=== PATIENT | female | born 1985 | race Caucasian/White ===

== ENCOUNTER 2019-07-18 07:57 | Outpatient (CLI) | payer BC, SELFPAY ==
--- NOTE | 2019-07-18 08:19 | CT_ITS ---
WS: [id number] CT ABDOMEN PELVIS TECHNIQUE: Noncontrast CT of the abdomen and pelvis with coronal and sagittal reformatted images. CLINICAL INFORMATION: lymphadenopathy COMPARISON: April 22, 2019 DLP: 1133.[address] scans at [facility] use at least one of these dose optimization techniques: automat ed exposure control; mA and/or kV adjustment per patient size (includes targeted exams where dose is matched to clinical indication); or iterative reconstruction. FINDINGS: Noncontrast liver is normal. Cholecystectomy clips. Noncontrast spleen is normal. Normal GE junction. Adrenal glands are normal. Again seen is mild haziness along the mesenteric root and central mesent [place] with a few prominent lymph nodes consistent with hema mesentery unchanged. Recommend continued annual surveillance. Previously described right UVJ calculus has resolved. No hydronephrosis today. Adrenal glands are normal. No hydronephrosis. No obstructing renal or ureteral calculi. No evidence o f small or large bowel obstruction. Normal caliber abdominal aorta. IMPRESSION: 1. Previously described right UVJ calculus has resolved. 2. 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 Recommend continued annual surveillance. 3. Prior cholecystectomy. 4. No new lymphadenopathy.
[2019-07-18] MEDS: iohexol 300 mg/mL 50 mL Btl PO (09:55)
== END 2019-07-18 07:58 | disposition home or self-care (01) ==
LOC: RADWPI 08:03
PROVIDERS: Family Provider Nurse Practitioner; PCP Nurse Practitioner; Visit Provider Nurse Practitioner
DX: R59.1 Generalized enlarged lymph nodes (principal); Z90.49 Acquired absence of other specified parts of digestive tract
CPT/HCPCS: 74176; Q9967

== ENCOUNTER → 2019-09-03 15:48 | Outpatient (BNVA) | payer BC, SELFPAY | PROVIDERS: Family Provider Nurse Practitioner; PCP Nurse Practitioner; Visit Provider Obstetrics & Gynecology | DX: N97.9 Female infertility, unspecified (principal) | CPT/HCPCS: 84144; 84443; 85520 ==

== ENCOUNTER → 2019-09-11 10:05 | Outpatient (BNVA) | payer BC, SELFPAY | PROVIDERS: Family Provider Nurse Practitioner; PCP Nurse Practitioner; Visit Provider Obstetrics & Gynecology | DX: Z12.4 Encounter for screening for malignant neoplasm of cervix (principal) | CPT/HCPCS: 84144; 85520; 88175 ==

== ENCOUNTER → 2019-11-28 14:58 | Outpatient (BNVA) | payer BC, SELFPAY | PROVIDERS: Family Provider Nurse Practitioner; PCP Nurse Practitioner; Visit Provider Nurse Practitioner | DX: M54.2 Cervicalgia (principal); M54.5 Low back pain | CPT/HCPCS: 72040; 72072; 72100 ==

== ENCOUNTER 2019-12-05 06:00 | Outpatient (RCR) | payer BC, SELFPAY | END 2019-12-14 23:59 | disposition home or self-care (01) | LOC: TPT 06:00 | PROVIDERS: PCP Nurse Practitioner; Referring Provider Nurse Practitioner; Visit Provider Nurse Practitioner | DX: M51.36 Other intervertebral disc degeneration, lumbar region (principal) | CPT/HCPCS: 97110; 97161 ==

== ENCOUNTER → 2020-01-31 10:38 | Outpatient (BNVA) | payer BC, SELFPAY | PROVIDERS: PCP Nurse Practitioner; Visit Provider Nurse Practitioner Family | DX: J06.9 Acute upper respiratory infection, unspecified (principal); Z11.59 Encounter for screening for other viral diseases | CPT/HCPCS: 87635 ==

== ENCOUNTER → 2020-02-04 11:09 | Outpatient (BNVA) | payer BC, SELFPAY | PROVIDERS: PCP Nurse Practitioner; Visit Provider Obstetrics & Gynecology | DX: N97.9 Female infertility, unspecified (principal) | CPT/HCPCS: 83001; 84450 ==

== ENCOUNTER → 2020-02-06 12:01 | Outpatient (BNVA) | payer BC, SELFPAY | PROVIDERS: PCP Nurse Practitioner; Visit Provider Nurse Practitioner Family | DX: R07.9 Chest pain, unspecified (principal); E11.9 Type 2 diabetes mellitus without complications | CPT/HCPCS: 80053; 80061; 83036; 84443; 84484; 85025 ==

== ENCOUNTER → 2020-02-12 14:36 | Outpatient (BNVA) | payer BC, SELFPAY | PROVIDERS: PCP Nurse Practitioner; Visit Provider Obstetrics & Gynecology | DX: N83.01 Follicular cyst of right ovary (principal) | CPT/HCPCS: 76830 ==

== ENCOUNTER → 2020-02-14 11:35 | Outpatient (BNVA) | payer BC, SELFPAY | PROVIDERS: PCP Nurse Practitioner; Visit Provider Obstetrics & Gynecology | DX: N83.01 Follicular cyst of right ovary (principal) | CPT/HCPCS: 76830 ==

== ENCOUNTER → 2020-02-29 14:23 | Outpatient (BNVA) | payer BC, SELFPAY | PROVIDERS: PCP Nurse Practitioner; Visit Provider Obstetrics & Gynecology | DX: Z32.01 Encounter for pregnancy test, result positive (principal) | CPT/HCPCS: 81025 ==

== ENCOUNTER → 2020-03-12 13:53 | Outpatient (BNVA) | payer BC, SELFPAY | PROVIDERS: PCP Nurse Practitioner; Visit Provider Obstetrics & Gynecology | DX: Z31.83 Encounter for assisted reproductive fertility procedure cycle (principal) | CPT/HCPCS: 76830; 76856 ==

== ENCOUNTER → 2020-03-14 11:30 | Outpatient (BNVA) | payer BC, SELFPAY | PROVIDERS: PCP Nurse Practitioner; Visit Provider Obstetrics & Gynecology | DX: N83.01 Follicular cyst of right ovary (principal) | CPT/HCPCS: 76830 ==

== ENCOUNTER 2020-03-28 01:41 | Emergency (ER) | payer BC, SELFPAY ==
[2020-03-28] VITALS (7 sets, daily range): BP systolic 105–173; BP diastolic 56–107; PULSE 69–91; RESP 13–21; TEMP 36.6; O2SAT 97–100; BMI 51.5
--- NOTE | 2020-03-28 01:45 | XR_ITS ---
WS: [id number] Portable AP upright chest, 03/28/2020 Clinical Data: Chest pain Comparison: PA and lateral chest, 03/07/2019. Findings: No nodules, masses or effusions are seen. The heart is normal. The pulmonary vascularity is not increased. No pneumonia or pneumothorax is seen. XR/XR chest 1V portable [id number] Impression: Negative chest.
--- NOTE | 2020-03-28 01:46 | ECG_ITS ---
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 Measurements Intervals [place] Rate: 82 P: 30 NV: 144 QRS: 28 QRSD: 101 T: 35 QT: 380 QTc: 444 Interpretive Statements SINUS RHYTHM LOW QRS VOLTAGE IN PRECORDIAL LEADS [QRS DEFLECTION < 1.0 mV IN CHEST LEADS] Compared to ECG 05/30/2015 19:56:59 Low QRS voltage now present Electronically Signed On 03-28-2020 19:59:06 MEDICAL APPOINTMENT SCHEDULER by Emanuel Arguello M.D. [email or web address]
--- NOTE | 2020-03-28 01:55 | ED_ITS ---
Documented by User: Chandni Ley 03/28/20 06:02 HPI - Chest Pain General: Chief Complaint: Chest Pain Stated Complaint: cp Time Seen by Provider: 03/28/20 01:44 Source: patient Mode of arrival: ambulatory Limitations: no limitations History of Present Illness: HPI narrative: Parris is a 34-year-old female who comes in complaining of chest pain. She describes the pain as intermittent and is a squeezing pain deep in her chest that radiates through to her back. She states the pain has been going on since 14 January. She seen her primary care physician about this but she felt this was anxiety. The patient elizabeth has chest pressure along with a sporadic squeezing type pains. She denies any radiation of this pressure and does not describe any nausea or vomiting, diaphoresis, worsening with exertion or other complaints. Patient states she is also had pancreatitis in the past and this feels somewhat like that. She states the pain feels somewhat like a burning pain as well. The patient states that she has been commonly getting indigestion after she eats which is getting progressively worse. Tonight the patient had severe indigestion after eating but then still went to walk and the exertion made her chest pain no worse. She has been walking most evenings for exercise and does not get the chest pain at that time. Tonight the patient states the symptoms have been constant for 7 hours. They are not waxing and waning or changed by anything but just constant. Patient denies any other complaints or concerns. Associated symptoms: Deny abdominal pain, diaphoresis, dyspnea, fever(s), nausea, palpitations, syncope or vomiting Review of Systems Const: Denies: fever(s), chills, body aches, fatigue, malaise or diaphoresis Eyes: Denies: change in vision, blurry vision, photophobia, eye discomfort, eye discharge, eye redness or yellow eyes ENMT: Denies: throat pain, odynophagia, hoarseness, swelling of lips/tongue, ear or mastoid pain, ear discharge, change in hearing or nasal discharge Card: Reports: chest pain; Denies: palpitations, irregular heart rhythm, edema, lightheadedness, syncope, pre-syncope, dyspnea on exertion or orthopnea Resp: Denies: dyspnea, productive cough, non-productive cough, wheezing, hemoptysis or chest congestion GI: Denies: abdominal pain, nausea, vomiting, hematemesis, coffee ground emesis, heartburn, diarrhea, constipation, GI cramping, hematochezia or melena : Denies: flank pain, dysuria, urinary frequency, urinary urgency or hematuria Musc: Denies: neck pain, back pain, extremity pain, extremity swelling, joint pain, joint swelling, joint redness, joint warmth or joint stiffness Skin/Breast: Denies: rash, pruritus, erythema, skin pain or skin tenderness Neuro: Denies: headache(s), numbness in extremities, weakness in extremities, sensory changes, lack of coordination, difficulty walking, dizziness, vertigo, confusion, Slurred speech present or seizure-like activity Sherif/Lymph: Denies: easy bruising, easy bleeding, petechiae, purpura or enlarg ed lymph nodes All/Imm: Denies: urticaria, throat swelling, tongue swelling, facial swelling or acute wheezing PFSH ED PFSH: Medical History Anxiety Chronic GERD Diabetes mellitus History of smoking Stop Summer 2019 No pertinent past medical history Denies hypertension, seizures, asthma, DVT/PE, bleeding problems. PCP: PEMA Borja Obesity Surgical History S/P cholecystectomy 05/20/2014- Laparoscopic Dx: Cholelithiasis. Performed by Dr Morgan at [facility] in [place], [place] S/P wisdom tooth extraction Status post surgery History of surgery for right arm fracture done in [facility] Family History Family/Other Breast cancer Maternal aunt, diagnosed in her late 40s Hypertension maternal great grandmother Mother Diabetes Heart disease Hyperlipidemia Hypertension Father Diabetes Hypertension Grandmother Heart disease maternal Hyperlipidemia maternal Hypertension maternal Thyroid condition maternal Grandfather Stroke Maternal great grandfather Hypertension maternal Denies family history of Colon cancer Ovarian cancer Uterine cancer Social History Smoking and tobacco status: former smoker Additional social history: - Tobacco Use: Started smoking at age 16 summer Alcohol Use: has not drank in 1 year Drug Use: Used marijuana as a teenager. Last use of marijuana was prior to 2005. Denies any other drug use. 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 Female Reproductive History: Date of last menstrual period: 03/01/20 Physical Exam Const: COMMON NORMALS: no acute distress, patient oriented x3, no limitations and alert GENERAL APPEARANCE: cooperative HENMT: COMMON NORMALS: normocephalic, atraumatic, external ears normal, EAC's normal and Normal external nose present HEAD & SCALP: normal to inspection, normocephalic and atraumatic FACE & SINUS: normal facial exam and face symmetric NOSE: Normal external nose present and Normal nares present EXTERNAL EAR: Yes external ears normal EXTERNAL AUDITORY CANAL: EAC's normal MOUTH: Normal oral and palatal mucosa present, lip normal and tongue normal Eye: COMMON NORMALS: Equal, round and reactive pupils present and conjunctivae normal GENERAL EYE: appearance normal, both eyes and all related structures ALIGNMENT: Yes alignment normal PERIORBITAL: periorbital findings normal EYELID: eyelids normal CONJUNCTIVA: Yes conjunctivae normal SCLERA: sclerae normal PUPIL: Yes Equal, round and reactive pupils present Neck/C-Spine: COMMON NORMALS: full ROM, no lymphadenopathy, supple, no meningeal signs and no JVD GENERAL: Yes normal visual inspection and Yes trachea midline Chest: COMMONS NORMALS: normal inspection of the chest and normal palpation of entire chest wall Resp: COMMON NORMALS: normal respiratory effort, No retractions, No use of accessory muscles and clear to auscultation bilaterally EFFORT & INSPECTION: Yes able to speak in complete sentences and Yes symmetric chest movement AUSCULTATION: clear to auscultation bilaterally, no crackles, no rales, no rhonchi and no wheezes Cardio: COMMON NORMALS: no JVD, regular rate, regular rhythm, S1 normal heart sound present and S2 normal heart sound present RATE: regular rate RHYTHM: regular rhythm HEART SOUNDS: S1 normal heart sound present, S2 normal heart sound present, no click, no gallops, no murmurs and no rubs GI: COMMON NORMALS: Soft to palpation and No hepatosplenomegaly present PALPATION: Yes Soft to palpation, No Tenderness to palpation present (GI), No Guarding due to palpation present (GI), No Rigid due to palpation, Yes No hepatosplenomegaly present, No Hernia present, No Palpable mass present and No Pulsatile mass present : COMMON NORMALS: Yes no CVA tenderness BLADDER/KIDNEY EXAM: Yes no CVA tenderness EXTERNAL FEMALE EXAM: No Hernia present Back/Pelvis: COMMON NORMALS: no CVA tenderness, thoracic and lumbar spine normal to inspection, no thoracic nor lumbar tenderness and thoraco-lumbar ROM normal Extremity: COMMON NORMALS: normal to inspection, full ROM, capillary refill normal, no joint enlargement, no clubbing, cyanosis or edema and no calf tenderness Neuro: COMMON NORMALS: patient oriented x3, CN's II-XII intact bilaterally, moves all extremities, no focal motor deficits and no sensory deficits noted SENSORIUM/ORIENTATION: Yes alert MENINGEAL SIGNS: Yes no meningeal signs SPEECH: speech normal Psych: COMMON NORMALS: mental status grossly normal, Normal thought process present, cooperative, normal affect, speech normal and activity/motor behavior normal SPEECH: Yes normal speech THOUGHT PROCESS: Normal thought process present Skin: COMMON NORMALS: no rashes or lesions noted, turgor normal, no jaundice, no petechiae and no mottling GENERAL SKIN EXAM: no rashes or lesions noted and turgor normal Course Vital Signs: Vital signs: Vital Signs Temperature 97.8 F 03/28/20 01:44 Pulse Rate 82 03/28/20 07:13 Respiratory Rate 18 03/28/20 07:13 Blood Pressure 144/84 03/28/20 07:13 Pulse Oximetry 98 03/28/20 07:13 MDM - Chest Pain MDM Narrative: Medical decision making narrative: [id number] -Parris is a very nice 34-year-old female who comes in concerned about her chest discomfort. Per the patient's history this sounds more like a reflux type of discomfort. The symptoms are not associated with exertion, she has no diaphoresis, nausea or vomiting, radiation of her pain or shortness of breath. The patient does appear extremely anxious and admits to severe anxiety. Patient is recent been seen by her primary care provider and started on anxiety medicine but it has been less than 2 weeks since starting it. Patient has had constant chest discomfort for over 7 hours and her EKG and first troponin are normal. Her second EKG is also normal but the second troponin is pending at this time. The patient got relief with a GI cocktail here. Utilizing the hospital chest pain pathway and the heart score the patient could have been discharged after the first troponin as she has had constant pain for over 6 hours and she has a negative EKG and troponin. Her heart score is a 3. I also utilized the EDACs score and the TMACs scoring systems and both also assign her a low risk. Patient at this time states she is ready to go home and will just follow-up with Dr. Malik that is scheduled for April 09 and does not want to stay for stress test. After much discussion she does agree to stay for at least a second troponin. Lab Data: Attestation: I reviewed the patient's lab results. Labs: Lab Results 03/28/20 03/28/20 03/28/20 Range/Units 01:46 02:00 02:00 WBC 10.2 H (4.0-10.0) 10^3/ uL RBC 4.44 (4.1-5.3) 10^6/u L Hgb 13.2 (11.5-15.3) g/dL Hct 41.6 (37.0-47.0) % MCV 93.7 (81-99) fL MCH 29.7 (28.0-34.0) pg MCHC 31.7 (30.0-36.0) g/dL RDW 12.0 L (12.1-15.1) % Plt Count 346 (130-400) 10^3/c mm MPV 9.5 (7.4-10.4) fL Neut % (Auto) 55.9 % Lymph % (Auto) 33.3 % [place] % (Auto) 7.6 % Eos % (Auto) 3.0 % Baso % (Auto) 0.1 % Neut # (Auto) 5.69 (1.8-7.7) 10^3/u L Lymph # (Auto) 3.4 (0.8-4.8) 10^3/u L [place] # (Auto) 0.8 (0.2-0.9) 10^3/u L Eos # (Auto) 0.3 (0.0-0.8) 10^3/u L Baso # (Auto) 0.0 (0.0-0.1) 10^3/u L Nucleated RBC % (a uto) 0 % Nucleated RBCs # 0.0 /100WBC PT 12.50 (12.1-14.9) SECO NDS INR 0.91 (0.8-1.2) D-Dimer 0.51 (0-0.59) ug/mIFE U Sodium (136-145) mmol/L Potassium (3.5-5.1) mmol/L Chloride (98-107) mmol/L Carbon Dioxide (22-29) mmol/L Anion Gap (5-19) BUN (6-20) mg/dL Creatinine (0.5-0.9) mg/dL GFR Calculation (90-130) mL/min Glucose (65-115) mg/dL Calculated Osmolal ity (285-295) mOsm/k g Calcium (8.5-10.5) mg/dL Magnesium (1.7-2.3) mg/dL Total Bilirubin (0.15-1.2) mg/dL AST (0-32) U/L ALT (0-33) U/L Alkaline Phosphata se (35-105) IU/L Troponin T Baselin e (0-10) ng/L Troponin T 120 Min cher-ae heights (0-10) ng/L Delta Troponin T (0-10) ABS# Total Protein (6.6-8.7) g/dL Albumin (3.5-5.2) g/dL Globulin (1.3-4.6) g/dL Lipase (13-60) U/L Urine Color (Yellow) Urine Appearance (CLEAR) Urine pH (5-7) Ur Specific Gravit y (1.005-1.030) Urine Protein (Negative) Urine Glucose (UA) (Normal) Urine Ketones (Negative) Urine Blood (Negative) Urine Nitrate (Negative) Urine Bilirubin (Negative) Urine Urobilinogen (Negative) mg/dL Ur Leukocyte Maria Teresa ase (Negative) Urine RBC (0-2) /hpf Urine WBC (0-5) /hpf Ur Squamous Epith Cells (0-5) /hpf Amorphous Sediment Urine Bacteria (NONE) /hpf H. pylori IgG Anti body (Negative) 03/28/20 03/28/20 03/28/20 Range/Units 02:00 02:00 02:05 WBC (4.0-10.0) 10^3/ uL RBC (4.1-5.3) 10^6/u L Hgb (11.5-15.3) g/dL Hct (37.0-47.0) % MCV (81-99) fL MCH (28.0-34.0) pg MCHC (30.0-36.0) g/dL RDW (12.1-15.1) % Plt Count (130-400) 10^3/c mm MPV (7.4-10.4) fL Neut % (Auto) % Lymph % (Auto) % [place] % (Auto) % Eos % (Auto) % Baso % (Auto) % Neut # (Auto) (1.8-7.7) 10^3/u L Lymph # (Auto) (0.8-4.8) 10^3/u L [place] # (Auto) (0.2-0.9) 10^3/u L Eos # (Auto) (0.0-0.8) 10^3/u L Baso # (Auto) (0.0-0.1) 10^3/u L Nucleated RBC % (a uto) % Nucleated RBCs # /100WBC PT (12.1-14.9) SECO NDS INR (0.8-1.2) D-Dimer (0-0.59) ug/mIFE U Sodium 139 (136-145) mmol/L Potassium 4.0 (3.5-5.1) mmol/L Chloride 102 (98-107) mmol/L Carbon Dioxide 27 (22-29) mmol/L Anion Gap 14.0 (5-19) BUN 11 (6-20) mg/dL Creatinine 0.6 (0.5-0.9) mg/dL GFR Calculation 113.1 (90-130) mL/min Glucose 148 H (65-115) mg/dL Calculated Osmolal ity 290 (285-295) mOsm/k g Calcium 9.6 (8.5-10.5) mg/dL Magnesium 2.2 (1.7-2.3) mg/dL Total Bilirubin 0.2 (0.15-1.2) mg/dL AST 19 (0-32) U/L ALT 24 (0-33) U/L Alkaline Phosphata se 60 (35-105) IU/L Troponin T Baselin e 6 (0-10) ng/L Troponin T 120 Min cher-ae heights (0-10) ng/L Delta Troponin T (0-10) ABS# Total Protein 7.1 (6.6-8.7) g/dL Albumin 4.6 (3.5-5.2) g/dL Globulin 2.5 (1.3-4.6) g/dL Lipase 34 (13-60) U/L Urine Color Yellow (Yellow) Urine Appearance Cloudy A (CLEAR) Urine pH 6.5 (5-7) Ur Specific Gravit y 1.010 (1.005-1.030) Urine Protein Neg (Negative) Urine Glucose (UA) Norm (Normal) Urine Ketones Negative (Negative) Urine Blood Neg (Negative) Urine Nitrate Negative (Negative) Urine Bilirubin Neg (Negative) Urine Urobilinogen Norm (Negative) mg/dL Ur Leukocyte Maria Teresa ase Trace H (Negative) Urine RBC 0-4 H (0-2) /hpf Urine WBC 10-15 H (0-5) /hpf Ur Squamous Epith Cells 0-4 H (0-5) /hpf Amorphous Sediment Not Reportable Urine Bacteria 2+ H (NONE) /hpf H. pylori IgG Anti body (Negative) 03/28/20 03/28/20 Range/Units 05:00 05:00 WBC (4.0-10.0) 10^3/ uL RBC (4.1-5.3) 10^6/u L Hgb (11.5-15.3) g/dL Hct (37.0-47.0) % MCV (81-99) fL MCH (28.0-34.0) pg MCHC (30.0-36.0) g/dL RDW (12.1-15.1) % Plt Count (130-400) 10^3/c mm MPV (7.4-10.4) fL Neut % (Auto) % Lymph % (Auto) % [place] % (Auto) % Eos % (Auto) % Baso % (Auto) % Neut # (Auto) (1.8-7.7) 10^3/u L Lymph # (Auto) (0.8-4.8) 10^3/u L [place] # (Auto) (0.2-0.9) 10^3/u L Eos # (Auto) (0.0-0.8) 10^3/u L Baso # (Auto) (0.0-0.1) 10^3/u L Nucleated RBC % (a uto) % Nucleated RBCs # /100WBC PT (12.1-14.9) SECO NDS INR (0.8-1.2) D-Dimer (0-0.59) ug/mIFE U Sodium (136-145) mmol/L Potassium (3.5-5.1) mmol/L Chloride (98-107) mmol/L Carbon Dioxide (22-29) mmol/L Anion Gap (5-19) BUN (6-20) mg/dL Creatinine (0.5-0.9) mg/dL GFR Calculation (90-130) mL/min Glucose (65-115) mg/dL Calculated Osmolal ity (285-295) mOsm/k g Calcium (8.5-10.5) mg/dL Magnesium (1.7-2.3) mg/dL Total Bilirubin (0.15-1.2) mg/dL AST (0-32) U/L ALT (0-33) U/L Alkaline Phosphata se (35-105) IU/L Troponin T Baselin e (0-10) ng/L Troponin T 120 Min cher-ae heights 6.00 (0-10) ng/L Delta Troponin T 0 (0-10) ABS# Total Protein (6.6-8.7) g/dL Albumin (3.5-5.2) g/dL Globulin (1.3-4.6) g/dL Lipase (13-60) U/L Urine Color (Yellow) Urine Appearance (CLEAR) Urine pH (5-7) Ur Specific Gravit y (1.005-1.030) Urine Protein (Negative) Urine Glucose (UA) (Normal) Urine Ketones (Negative) Urine Blood (Negative) Urine Nitrate (Negative) Urine Bilirubin (Negative) Urine Urobilinogen (Negative) mg/dL Ur Leukocyte Maria Teresa ase (Negative) Urine RBC (0-2) /hpf Urine WBC (0-5) /hpf Ur Squamous Epith Cells (0-5) /hpf Amorphous Sediment Urine Bacteria (NONE) /hpf H. pylori IgG Anti body Negative (Negative) Imaging Data^: CXR: Attestation: I personally reviewed and interpreted this imaging study as follows: My impression: No acute cardiopulmonary findings. EKG Data^: EKG 1: Attestation: I personally reviewed and interpreted this EKG as follows: EKG interpretation date: 03/28/20 EKG interpretation time: 01:48 Interpretation: Normal sinus rhythm at 82 beats a minute, normal axis, normal intervals, no acute ST-T wave changes. Unchanged from previous. EKG 2: Attestation: I personally reviewed and interpreted this EKG as follows: EKG interpretation date: 03/28/20 EKG interpretation time: 03:56 Interpretation: Normal sinus rhythm at 69 beats a minute, normal axis, no block, nonspecific ST-T wave changes unchanged from previous. Discharge Plan Discharge Patient Disposition: Home Clinical Impression: Chest pain Qualifiers: Chest pain type: unspecified Qualified Code(s): R07.9 - Chest pain, unspecified GERD (gastroesophageal reflux disease) Qualifiers: Esophagitis presence: esophagitis presence not specified Qualified Code(s): K21.9 - Gastro-esophageal reflux disease without esophagitis UTI (urinary tract infection) Qualifiers: Urinary tract infection type: site unspecified Hematuria presence: without hematuria Qualified Code(s): N39.0 - Urinary tract infection, site not specified Condition: Stable Prescriptions: New Bactrim DS 800-160 mg tablet 1 tab PO BID 7 Days Qty: 14 RF: 0 No Action cetirizine 10 mg capsule 10 mg PO DAILY RF: 0 Multi-DHA (algal oil) 27mg iron- 800 mcg-250 mg capsule PO RF: 0 metformin 500 mg tablet 2,000 mg PO DAILY Qty: 120 RF: 5 escitalopram oxalate [Lexapro] 5 mg tablet 5 mg PO DAILY Qty: 30 RF: 0 omeprazole 20 mg capsule,delayed release(DR/EC) 20 mg PO DAILY RF: 0 aspirin [Adult Low Dose Aspirin] 81 mg tablet,delayed release (DR/EC) 81 mg PO DAILY RF: 0 clomiphene citrate 50 mg tablet 100 mg PO DAILY 5 Days Qty: 10 RF: 0 Vitamin D3 25 mcg (1,000 unit) Tablet,Chewable 25 mcg PO DAILY RF: 0 Discharge Orders: Discharge Order (Routine); Ordered 03/28/20 Ordered By: Checo Lynn Referrals: Emre Valentino FNP-C [Primary Care Provider] - 1-3 days Lashawn Malik MD [Physician] - 1-3 days Patient Instructions: Chest Pain (ED), Gastroesophageal Reflux Disease (ED) Sign Out Sign Out Data: Patient Sign Out occurred on 03/28/20 at 06:11. Patient's care was discussed, and care was transferred from to Checo Lynn DO. Coding Level of Care Code ED Surgical Scrub Technologist for Chg Fwd Exam Comprehensive Documented by User: Checo Lynn DO 04/01/20 11:33 HPI - Chest Pain General: Chief Complaint: Chest Pain Stated Complaint: cp Time Seen by Provider: 03/28/20 01:44 PFSH ED PFSH: Medical History Anxiety Chronic GERD Diabetes mellitus History of smoking summer No pertinent past medical history Denies hypertension, seizures, asthma, DVT/PE, bleeding problems. PCP: PEMA Borja Obesity Surgical History S/P cholecystectomy 05/20/2014- Laparoscopic Dx: Cholelithiasis. Performed by Dr oMrgan at [facility] in [place], [place] S/P wisdom tooth extraction Status post surgery History of surgery for right arm fracture done in [facility] Family History Family/Other Breast cancer Maternal aunt, diagnosed in her late 40s Hypertension maternal great grandmother Mother Diabetes Heart disease Hyperlipidemia Hypertension Father Diabetes Hypertension Grandmother Heart disease maternal Hyperlipidemia maternal Hypertension maternal Thyroid condition maternal Grandfather Stroke Maternal great grandfather Hypertension maternal Denies family history of Colon cancer Ovarian cancer Uterine cancer Social History Smoking and tobacco status: former smoker Additional social history: - Tobacco Use: Started smoking at age 16 summer Alcohol Use: has not drank in 1 year Drug Use: Used marijuana as a teenager. Last use of marijuana was prior to 2005. Denies any other drug use. 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 Course Vital Signs: Vital signs: Vital Signs Temperature 97.8 F 03/28/20 01:44 Pulse Rate 82 03/28/20 07:13 Respiratory Rate 18 03/28/20 07:13 Blood Pressure 144/84 03/28/20 07:13 Pulse Oximetry 98 03/28/20 07:13 MDM - Chest Pain 2 MDM Narrative: Medical decision making narrative: Care assumed a change of shift. Troponin is negative we will go ahead and discharge patient home set her up for outpatient stress testing additionally start on PPI and treat for cystitis. Lab Data: Labs: Lab Results 03/28/20 03/28/20 03/28/20 Range/Units 01:46 02:00 02:00 WBC 10.2 H (4.0-10.0) 10^3/ uL RBC 4.44 (4.1-5.3) 10^6/u L Hgb 13.2 (11.5-15.3) g/dL Hct 41.6 (37.0-47.0) % MCV 93.7 (81-99) fL MCH 29.7 (28.0-34.0) pg MCHC 31.7 (30.0-36.0) g/dL RDW 12.0 L (12.1-15.1) % Plt Count 346 (130-400) 10^3/c mm MPV 9.5 (7.4-10.4) fL Neut % (Auto) 55.9 % Lymph % (Auto) 33.3 % [place] % (Auto) 7.6 % Eos % (Auto) 3.0 % Baso % (Auto) 0.1 % Neut # (Auto) 5.69 (1.8-7.7) 10^3/u L Lymph # (Auto) 3.4 (0.8-4.8) 10^3/u L [place] # (Auto) 0.8 (0.2-0.9) 10^3/u L Eos # (Auto) 0.3 (0.0-0.8) 10^3/u L Baso # (Auto) 0.0 (0.0-0.1) 10^3/u L Nucleated RBC % (a uto) 0 % Nucleated RBCs # 0.0 /100WBC PT 12.50 (12.1-14.9) SECO NDS INR 0.91 (0.8-1.2) D-Dimer 0.51 (0-0.59) ug/mIFE U Sodium (136-145) mmol/L Potassium (3.5-5.1) mmol/L Chloride (98-107) mmol/L Carbon Dioxide (22-29) mmol/L Anion Gap (5-19) BUN (6-20) mg/dL Creatinine (0.5-0.9) mg/dL GFR Calculation (90-130) mL/min Glucose (65-115) mg/dL Calculated Osmolal ity (285-295) mOsm/k g Calcium (8.5-10.5) mg/dL Magnesium (1.7-2.3) mg/dL Total Bilirubin (0.15-1.2) mg/dL AST (0-32) U/L ALT (0-33) U/L Alkaline Phosphata se (35-105) IU/L Troponin T Baselin e (0-10) ng/L Troponin T 120 Min cher-ae heights (0-10) ng/L Delta Troponin T (0-10) ABS# Total Protein (6.6-8.7) g/dL Albumin (3.5-5.2) g/dL Globulin (1.3-4.6) g/dL Lipase (13-60) U/L Urine Color (Yellow) Urine Appearance (CLEAR) Urine pH (5-7) Ur Specific Gravit y (1.005-1.030) Urine Protein (Negative) Urine Glucose (UA) (Normal) Urine Ketones (Negative) Urine Blood (Negative) Urine Nitrate (Negative) Urine Bilirubin (Negative) Urine Urobilinogen (Negative) mg/dL Ur Leukocyte Maria Teresa ase (Negative) Urine RBC (0-2) /hpf Urine WBC (0-5) /hpf Ur Squamous Epith Cells (0-5) /hpf Amorphous Sediment Urine Bacteria (NONE) /hpf H. pylori IgG Anti body (Negative) 03/28/20 03/28/20 03/28/20 Range/Units 02:00 02:00 02:05 WBC (4.0-10.0) 10^3/ uL RBC (4.1-5.3) 10^6/u L Hgb (11.5-15.3) g/dL Hct (37.0-47.0) % MCV (81-99) fL MCH (28.0-34.0) pg MCHC (30.0-36.0) g/dL RDW (12.1-15.1) % Plt Count (130-400) 10^3/c mm MPV (7.4-10.4) fL Neut % (Auto) % Lymph % (Auto) % [place] % (Auto) % Eos % (Auto) % Baso % (Auto) % Neut # (Auto) (1.8-7.7) 10^3/u L Lymph # (Auto) (0.8-4.8) 10^3/u L [place] # (Auto) (0.2-0.9) 10^3/u L Eos # (Auto) (0.0-0.8) 10^3/u L Baso # (Auto) (0.0-0.1) 10^3/u L Nucleated RBC % (a uto) % Nucleated RBCs # /100WBC PT (12.1-14.9) SECO NDS INR (0.8-1.2) D-Dimer (0-0.59) ug/mIFE U Sodium 139 (136-145) mmol/L Potassium 4.0 (3.5-5.1) mmol/L Chloride 102 (98-107) mmol/L Carbon Dioxide 27 (22-29) mmol/L Anion Gap 14.0 (5-19) BUN 11 (6-20) mg/dL Creatinine 0.6 (0.5-0.9) mg/dL GFR Calculation 113.1 (90-130) mL/min Glucose 148 H (65-115) mg/dL Calculated Osmolal ity 290 (285-295) mOsm/k g Calcium 9.6 (8.5-10.5) mg/dL Magnesium 2.2 (1.7-2.3) mg/dL Total Bilirubin 0.2 (0.15-1.2) mg/dL AST 19 (0-32) U/L ALT 24 (0-33) U/L Alkaline Phosphata se 60 (35-105) IU/L Troponin T Baselin e 6 (0-10) ng/L Troponin T 120 Min cher-ae heights (0-10) ng/L Delta Troponin T (0-10) ABS# Total Protein 7.1 (6.6-8.7) g/dL Albumin 4.6 (3.5-5.2) g/dL Globulin 2.5 (1.3-4.6) g/dL Lipase 34 (13-60) U/L Urine Color Yellow (Yellow) Urine Appearance Cloudy A (CLEAR) Urine pH 6.5 (5-7) Ur Specific Gravit y 1.010 (1.005-1.030) Urine Protein Neg (Negative) Urine Glucose (UA) Norm (Normal) Urine Ketones Negative (Negative) Urine Blood Neg (Negative) Urine Nitrate Negative (Negative) Urine Bilirubin Neg (Negative) Urine Urobilinogen Norm (Negative) mg/dL Ur Leukocyte Maria Teresa ase Trace H (Negative) Urine RBC 0-4 H (0-2) /hpf Urine WBC 10-15 H (0-5) /hpf Ur Squamous Epith Cells 0-4 H (0-5) /hpf Amorphous Sediment Not Reportable Urine Bacteria 2+ H (NONE) /hpf H. pylori IgG Anti body (Negative) 03/28/20 03/28/20 Range/Units 05:00 05:00 WBC (4.0-10.0) 10^3/ uL RBC (4.1-5.3) 10^6/u L Hgb (11.5-15.3) g/dL Hct (37.0-47.0) % MCV (81-99) fL MCH (28.0-34.0) pg MCHC (30.0-36.0) g/dL RDW (12.1-15.1) % Plt Count (130-400) 10^3/c mm MPV (7.4-10.4) fL Neut % (Auto) % Lymph % (Auto) % [place] % (Auto) % Eos % (Auto) % Baso % (Auto) % Neut # (Auto) (1.8-7.7) 10^3/u L Lymph # (Auto) (0.8-4.8) 10^3/u L [place] # (Auto) (0.2-0.9) 10^3/u L Eos # (Auto) (0.0-0.8) 10^3/u L Baso # (Auto) (0.0-0.1) 10^3/u L Nucleated RBC % (a uto) % Nucleated RBCs # /100WBC PT (12.1-14.9) SECO NDS INR (0.8-1.2) D-Dimer (0-0.59) ug/mIFE U Sodium (136-145) mmol/L Potassium (3.5-5.1) mmol/L Chloride (98-107) mmol/L Carbon Dioxide (22-29) mmol/L Anion Gap (5-19) BUN (6-20) mg/dL Creatinine (0.5-0.9) mg/dL GFR Calculation (90-130) mL/min Glucose (65-115) mg/dL Calculated Osmolal ity (285-295) mOsm/k g Calcium (8.5-10.5) mg/dL Magnesium (1.7-2.3) mg/dL Total Bilirubin (0.15-1.2) mg/dL AST (0-32) U/L ALT (0-33) U/L Alkaline Phosphata se (35-105) IU/L Troponin T Baselin e (0-10) ng/L Troponin T 120 Min cher-ae heights 6.00 (0-10) ng/L Delta Troponin T 0 (0-10) ABS# Total Protein (6.6-8.7) g/dL Albumin (3.5-5.2) g/dL Globulin (1.3-4.6) g/dL Lipase (13-60) U/L Urine Color (Yellow) Urine Appearance (CLEAR) Urine pH (5-7) Ur Specific Gravit y (1.005-1.030) Urine Protein (Negative) Urine Glucose (UA) (Normal) Urine Ketones (Negative) Urine Blood (Negative) Urine Nitrate (Negative) Urine Bilirubin (Negative) Urine Urobilinogen (Negative) mg/dL Ur Leukocyte Maria Teresa ase (Negative) Urine RBC (0-2) /hpf Urine WBC (0-5) /hpf Ur Squamous Epith Cells (0-5) /hpf Amorphous Sediment Urine Bacteria (NONE) /hpf H. pylori IgG Anti body Negative (Negative) Discharge Plan Discharge Patient Disposition: Home Clinical Impression: Chest pain Qualifiers: Chest pain type: unspecified Qualified Code(s): R07.9 - Chest pain, unspecified GERD (gastroesophageal reflux disease) Qualifiers: Esophagitis presence: esophagitis presence not specified Qualified Code(s): K21.9 - Gastro-esophageal reflux disease without esophagitis UTI (urinary tract infection) Qualifiers: Urinary tract infection type: site unspecified Hematuria presence: without hematuria Qualified Code(s): N39.0 - Urinary tract infection, site not specified Condition: Stable Prescriptions: New Bactrim DS 800-160 mg tablet 1 tab PO BID 7 Days Qty: 14 RF: 0 No Action cetirizine 10 mg capsule 10 mg PO DAILY RF: 0 Multi-DHA (algal oil) 27mg iron- 800 mcg-250 mg capsule PO RF: 0 metformin 500 mg tablet 2,000 mg PO DAILY Qty: 120 RF: 5 escitalopram oxalate [Lexapro] 5 mg tablet 5 mg PO DAILY Qty: 30 RF: 0 omeprazole 20 mg capsule,delayed release(DR/EC) 20 mg PO DAILY RF: 0 aspirin [Adult Low Dose Aspirin] 81 mg tablet,delayed release (DR/EC) 81 mg PO DAILY RF: 0 clomiphene citrate 50 mg tablet 100 mg PO DAILY 5 Days Qty: 10 RF: 0 Vitamin D3 25 mcg (1,000 unit) Tablet,Chewable 25 mcg PO DAILY RF: 0 Discharge Orders: Discharge Order (Routine); Ordered 03/28/20 Ordered By: Checo Lynn Referrals: Emre Valentino FNP-C [Primary Care Provider] - 1-3 days Lashawn Malik MD [Physician] - 1-3 days Patient Instructions: Chest Pain (ED), Gastroesophageal Reflux Disease (ED) Sign Out Sign Out Data: Patient Sign Out occurred on 03/28/20 at 06:11. Patient's care was discussed, and care was transferred from to Checo Lynn DO. Coding Level of Care Code ED Surgical Scrub Technologist for Chg Fwd Exam Comprehensive
[2020-03-28 02:03] LABS: Basophils % 0.1 %; Eosinophils # 0.3 10^3/uL (0.0-0.8); Hematocrit 41.6 % (37.0-47.0); Hemoglobin 13.2 g/dL (11.5-15.3); Lymphocytes # 3.4 10^3/uL (0.8-4.8); Lymphocytes % 33.3 %; Mean Corpuscular HGB Conc 31.7 g/dL (30.0-36.0); Mean Corpuscular Hemoglobin 29.7 pg (28.0-34.0); Mean Corpuscular Volume 93.7 fL (81-99); Mean Platelet Volume 9.5 fL (7.4-10.4); Monocytes # 0.8 10^3/uL (0.2-0.9); Monocytes % 7.6 %; Neutrophils # 5.69 10^3/uL (1.8-7.7); Neutrophils % 55.9 %; Nucleated Red Blood Cells % 0 %; Platelet Count 346 10^3/cmm (130-400); Red Blood Count 4.44 10^6/uL (4.1-5.3); White Blood Count 10.2 10^3/uL (4.0-10.0)
[2020-03-28 02:17] LABS: INR 0.91 (0.8-1.2)
[2020-03-28 02:23] LABS: Add Urine Culture? No; Bacteria Urine 2+ /hpf; Bilirubin Urine Neg (Negative); Blood Urine Neg (Negative); Glucose Urine UA Norm (Normal); Ketones Urine Negative (Negative); Leukocyte Esterase Urine Trace (Negative); Nitrate Urine Negative (Negative); Protein Urine Neg (Negative); RBC Urine 0-4 /hpf (0-2); Squamous Epithelial Cell Urine 0-4 /hpf (0-5); Urine Appearance Cloudy (CLEAR); Urine Color Yellow (Yellow); Urobilinogen Urine Norm (Negative); pH Urine 6.5 (5-7)
[2020-03-28 02:23] LABS: Alanine Aminotransferase 24 U/L (0-33); Albumin Level 4.6 g/dL (3.5-5.2); Alkaline Phosphatase 60 IU/L (35-105); Aspartate Amino Transferase 19 U/L (0-32); Blood Urea Nitrogen 11 mg/dL (6-20); Calcium 9.6 mg/dL (8.5-10.5); Carbon Dioxide 27 mmol/L (22-29); Chloride 102 mmol/L (98-107); Globulin 2.5 g/dL (1.3-4.6); Glomerular Filtration Rate 113.1 mL/min (90-130); Glucose 148 mg/dL (65-115); Lipase 34 U/L (13-60); Magnesium 2.2 mg/dL (1.7-2.3); Osmolality Calculated 290 mOsm/kg (285-295); Sodium 139 mmol/L (136-145); Total Bilirubin 0.2 mg/dL (0.15-1.2); Total Protein 7.1 g/dL (6.6-8.7)
[2020-03-28 02:27] LABS: Troponin(5th) Baseline 6 ng/L (0-10)
[2020-03-28] MEDS: LORazepam 2 mg/mL INJ 1 mL 1 MG IVP (02:42)
[2020-03-28] MEDS: cefTRIAXone 1,000 MG in sodium chloride 0.9% (plus) 50 ML 100 MG IV (02:44)
[2020-03-28 03:31] LABS: D Dimer 0.51 ug/mIFEU (0-0.59)
--- NOTE | 2020-03-28 03:46 | ECG_ITS ---
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 Measurements Intervals Galt Rate: 69 P: 34 MA: 148 QRS: 33 QRSD: 93 T: 34 QT: 390 QTc: 419 Interpretive Statements SINUS RHYTHM WITH SINUS ARRHYTHMIA LOW QRS VOLTAGE IN PRECORDIAL LEADS [QRS DEFLECTION < 1.0 mV IN CHEST LEADS] Compared to ECG 03/28/2020 01:48:24 No significant changes Electronically Signed On 03-28-2020 20:21:00 INTERNATIONAL ACCOUNT MANAGER by Emanuel Arguello M.D. [id number]
[2020-03-28] MEDS: lidocaine 2% viscous 15 ML, aluminum-mag hydrox-simethicon 30 ML, sucralfate oral liq 1 GM PO (04:04)
[2020-03-28] MEDS: pantoprazole 40 mg SDV 80 MG IVP (04:06)
[2020-03-28 06:11] LABS: H. Pylori IgG Antibody Negative (Negative); Troponin 5 2HR Delta 0 ABS# (0-10)
--- NOTE | 2020-03-28 11:04 | DCPLANNER ---
field manager had message to call [facility] to see if appointment that is scheduled could be moved up any sooner. field manager called [facility], spoke with [place], appointment was rescheduled for Tuesday, April 02, 2020 at 9:[address] Malik. field manager spoke with patient and gave patient the new appointment information. field manager also had message to schedule an out patient stress test for patient. field manager confirmed that patient still wanted to have the stress test ordered, and that patient sees Avis Valentino at [facility]. field manager faxed order to centralized scheduling, will call for appointment information.
--- NOTE | 2020-04-02 07:48 | DCPLANNER ---
Patients stress test has been cancelled due to insurance denial. Patient was called and informed.
--- NOTE | 2020-04-17 14:54 | DCPLANNER ---
Patient had a follow up appointment scheduled for 04.02.20 with [facility] - patient did attend appointment.
== END 2020-03-28 07:13 | disposition home or self-care (01) ==
PROVIDERS: Emergency Medicine; Emergency Provider Family Medicine; PCP Nurse Practitioner
DX: R07.9 Chest pain, unspecified (principal); K21.9 Gastro-esophageal reflux disease without esophagitis; N39.0 Urinary tract infection, site not specified; Z79.82 Long term (current) use of aspirin; Z79.84 Long term (current) use of oral hypoglycemic drugs; Z87.891 Personal history of nicotine dependence; E11.9 Type 2 diabetes mellitus without complications
CPT/HCPCS: 12345; 71045; 80053; 81001; 83690; 83735; 84484; 85025; 85378; 85610; 86677; 93005; 96365; 96375; 99283; 99284; C9113; J0696; J2060

== ENCOUNTER 2020-04-15 11:46 | Outpatient (CLI) | payer OTHER, SELFPAY | END 2020-04-15 11:47 | disposition home or self-care (01) | LOC: LAB 01-25 13:19 | PROVIDERS: PCP Nurse Practitioner; Visit Provider Nurse Practitioner | DX: K21.9 Gastro-esophageal reflux disease without esophagitis (principal) | CPT/HCPCS: 81000 ==

== ENCOUNTER 2020-04-16 12:41 | Outpatient (CLI) | payer BC, SELFPAY ==
--- NOTE | 2020-04-16 12:45 | USCV_ITS ---
Leticia Steele Age: 34 Gender: F : 1985 Exam Date: 04/16/2020 12:58 Ordering Phys: Emre Valentino Technologist: Vaishnavi Lee Exam Location: [facility] [place] Indication: Vascular complications following infusion LUE PROCEDURES: Venous duplex imaging was performed in only the left upper extremity. In addition, the basilic vein, cephalic vein, radial vein, and ulnar vein. Serial compression, augmentation maneuvers, and spectral Doppler flow evaluation were performed. FINDINGS: Superfilical thrombus seen in LT cephalic from dist to acf. all other veins are patent at this time CONCLUSIONS Superficial thrombus Left distal cephalic extending to antecubital fossa. Remainder LUE veins patent. Prelim to Emre MCADAMS at time of exam Rolando Yeung MD (Electronically Signed) Final Date: 16 April 2020 13:50 S
== END 2020-04-16 12:42 | disposition home or self-care (01) ==
LOC: RAD 12:44
PROVIDERS: PCP Nurse Practitioner; Visit Provider Nurse Practitioner
DX: T80.1XXA Vascular complications following infusion, transfusion and therapeutic injection, initial encounter (principal); I82.612 Acute embolism and thrombosis of superficial veins of left upper extremity
CPT/HCPCS: 93971

== ENCOUNTER 2020-05-02 10:26 | Outpatient (CLI) | payer BC, SELFPAY ==
--- NOTE | 2020-05-02 11:02 | ECG_ITS ---
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 Interpretive Statements NAME OF STUDY: TREADMILL STRESS ECHOCARDIOGRAM INDICATION: Chest Pain Baseline blood pressure of 144/56 mm Hg, heart rate of 64 beats per minute. EKG showed normal sinus rhythm, normal axis with nonspecific ST depression in inferior leads. The patient exercised for 6 minutes 17 seconds on a standard Ananda protocol. Patient attained a maximum heart rate of 169 beats per minute(91% of the maximum predicted heart rate) with a blood pressure at the peak exercise of 136/72 mm Hg and oxygen saturation of 92%. The EKG at the peak exercise revealed sinus tachycardia with no significant ST-T wave changes. Interpretation limited by artifact. Patient did not have any chest pain or any significant arrhythmis with the exercise. The study was terminated due to exertional dyspnea and fatigue. During the recovery phase, there were no new changes. Blood pressure at the end of the recovery phase was 116/66 mm Hg with a heart rate of 87 beats per minute and oxygen saturation 97%. CONCLUSION: 1. Normal EKG response to treadmill exercise. Interpretation limited by artifact. 2. No exercise-induced chest pain or cardiac arrhythmia 3. Fair exercise tolerance, attained a maximum of 10.2 METs. Maximum VO2 35.7 mL/kg/min. 4. Baseline normal blood pressure with normal response to exercise. 5. Echocardiac graphic portion of the study will be documented separately. Electronically Signed On 05-06-2020 17:30:50 TECHNICIAN HELPER INSTRUMENT by Lashawn Malik M.D. [id number]
[2020-05-02 11:03] VITALS: BMI 50.5
--- NOTE | 2020-05-02 12:01 | USCV_ITS ---
Leticia Steele Age: 34 Gender: F : 1985 Exam Date: 05/02/2020 12:03 Ordering Phys: Lashawn Malik MD ([email or web address]) Technologist: YUSUF HORNER [place] [facility] [place] Rhythm: Sinus Patient History: Diabetes mellitus, Family history, Smoker, Obesity Cardiac Medications: Aspirin Medications in past 24 hours: Aspirin Contrast: Optison Stress Results Protocol: Ananda Total dose(mL): 3 Exercise Duration (min:sec): 6:17 METS: 10.2 Resting HR: 64 Resting BP: 144 / 56 Peak HR: 169 Peak BP: 144 / 72 Max Predicted HR: 184 92 % Max Predicted HR Target HR: 156 Double Product: 59302 Stress Summary: The patient's target heart rate was achieved The hemodynamic response to exercise was normal BP Response: Normal Reason for Termination: Test terminated after reaching target heart rate (85% max predicted) Cardiac Symptoms: Short of Breath, chest pain ECG Analysis Resting ECG: Stress ECG: Arrhythmia: MEASUREMENTS (Male/Female) Normal Values FINDINGS PROCEDURE: At the baseline, the patient's blood pressure was [144/56] mmHg with a heart rate of 87 bpm. The patient exercised for 6 minutes 17 seconds on a standard Ananda protocol. Patient attained a maximum heart rate of 169 beats per minute(92% of the maximum predicted heart rate) with a blood pressure at the peak exercise of 144/72 mm Hg. During the recovery phase, there were no new changes. Echocardiographic pictures were taken at the baseline, immediately following the peak exercise and during the recovery phase. Baseline echocardiogram: Normal left ventricular size and systolic function with ejection fraction estimated at [50- 55]%. No diagnostic regional wall motion abnormalities. Normal right ventricle size and systolic function. No pericardial effusion. No intracardiac masses. Peak exercise echocardiogram: Normal augmentation of left ventricular systolic function with exercise. No new regional wall motion abnormalities. Recovery echocardiogram: Left ventricular systolic function normalizes. No regional wall motion abnormalities. CONCLUSIONS 1. This is a treadmill stress echocardiogram. 2. Patient exercised for 6 minutes 17 seconds. Fair exercise tolerance, attained a maximum of 10.2 METs. Double product of 24,336. 3. Normal heart rate response to exercise. Blood pressure did not rise appropriately with exercise. 4. Normal echocardiographic response to exercise. 5. Normal EKG response to stress. Please refer to EKG portion of the study for details. Lashawn Malik MD (Electronically Signed) Final Date: 06 May 2020 18:14 S
[2020-05-02 12:41] VITALS: BP 131/71; PULSE 91
[2020-05-02] MEDS: perflutren protein-a microsphr 0.22 mg/mL SDV 3 mL IV (13:00)
== END 2020-05-02 10:27 | disposition home or self-care (01) ==
PROVIDERS: PCP Nurse Practitioner; Visit Provider Internal Medicine Cardiovascular Disease
DX: R07.9 Chest pain, unspecified (principal)
CPT/HCPCS: 93017; 93350; 93352; Q9956

== ENCOUNTER → 2020-06-25 19:54 | Outpatient (BNVA) | payer OTHER, SELFPAY | PROVIDERS: PCP Nurse Practitioner; Visit Provider Nurse Practitioner Family | DX: N30.00 Acute cystitis without hematuria (principal) | CPT/HCPCS: 81000 ==

== ENCOUNTER 2020-07-15 07:46 | Outpatient (CLI) | payer OTHER, SELFPAY ==
--- NOTE | 2020-07-15 07:30 | XRR_ITS ---
PROCEDURE INFORMATION: Exam: XR Abdomen Exam date and time: 07/15/2020 8:07 AM Age: 34 years old Clinical indication: Condition or disease; Kidney or ureter condition; Calculus (stone) in ureter; Prior surgery; Surgery type: Gb; Additional info: Ureteral stone TECHNIQUE: Imaging protocol: XR of the abdomen. Views: Frontal supine view of the abdomen. 1 View. COMPARISON: CR XR KUB [id number] 05/03/2019 9:42 AM FINDINGS: Gastrointestinal tract: The bowel gas pattern is nonspecific. Air filled large bowel including distal rectal gas. Organs: Surgical clips are present in the region of the gallbladder fossa. No calcifications are seen overlying the renal outlines or the expected course of the right or left ureters. No suspicious calcifications within the pelvis. Bones/joints: Unremarkable. XR/XR KUB [id number] IMPRESSION: 1. The bowel gas pattern is nonspecific. Air filled large bowel including distal rectal gas. 2. No calcifications are seen overlying the renal outlines or the expected course of the right or left ureters. No suspicious calcifications within the pelvis.
== END 2020-07-15 07:47 | disposition home or self-care (01) ==
LOC: RAD 07:49
PROVIDERS: PCP Nurse Practitioner; Visit Provider Urology
DX: N20.1 Calculus of ureter (principal)
CPT/HCPCS: 74018; 81003

== ENCOUNTER → 2020-11-04 11:52 | Outpatient (BNVA) | payer OTHER, SELFPAY | PROVIDERS: PCP Nurse Practitioner; Visit Provider Dermatology | DX: Z01.89 Encounter for other specified special examinations (principal) ==

== ENCOUNTER → 2021-03-19 16:18 | Outpatient (BNVA) | payer OTHER, SELFPAY | PROVIDERS: PCP Nurse Practitioner; Visit Provider Nurse Practitioner | DX: M25.561 Pain in right knee (principal) | CPT/HCPCS: 73562 ==

== ENCOUNTER → 2021-04-28 09:35 | Outpatient (BNVA) | payer SELFPAY | PROVIDERS: PCP Nurse Practitioner; Visit Provider Dermatology | DX: Z01.89 Encounter for other specified special examinations (principal) ==

== ENCOUNTER → 2021-10-27 10:09 | Outpatient (BNVA) | payer SELFPAY | PROVIDERS: PCP Nurse Practitioner; Visit Provider Dermatology | DX: Z01.89 Encounter for other specified special examinations (principal) ==

== ENCOUNTER → 2022-01-26 16:17 | Outpatient (BNVA) | payer OTHER, SELFPAY | PROVIDERS: PCP Nurse Practitioner; Visit Provider Nurse Practitioner | DX: E11.65 Type 2 diabetes mellitus with hyperglycemia (principal); F41.9 Anxiety disorder, unspecified; E11.69 Type 2 diabetes mellitus with other specified complication; M51.36 Other intervertebral disc degeneration, lumbar region; E66.01 Morbid (severe) obesity due to excess calories; Z68.43 Body mass index [BMI] 50.0-59.9, adult; K21.9 Gastro-esophageal reflux disease without esophagitis; Z87.891 Personal history of nicotine dependence | CPT/HCPCS: 81000 ==

== ENCOUNTER → 2022-06-02 10:00 | Outpatient (BNVA) | payer OTHER, SELFPAY | PROVIDERS: PCP Nurse Practitioner; Visit Provider Nurse Practitioner | DX: E11.65 Type 2 diabetes mellitus with hyperglycemia (principal) | CPT/HCPCS: 80053; 80061; 82150; 83036; 83690; 84443 ==

== ENCOUNTER 2022-07-16 04:40 | Emergency (ER) | payer OTHER, SELFPAY ==
[2022-07-16] VITALS (7 sets, daily range): BP systolic 105–158; BP diastolic 53–107; PULSE 68–83; RESP 16–18; TEMP 36.4; O2SAT 92–98; BMI 43.2
--- NOTE | 2022-07-16 04:57 | ED_ITS ---
Documented by User: Johnny Chavez MD 07/16/22 05:03 HPI - Abdominal Pain General: Chief Complaint: Abdominal Pain Stated Complaint: ABD Pain Time Seen by Provider: 07/16/22 04:41 Source: patient Mode of arrival: ambulatory Limitations: no limitations History of Present Illness: 28-year-old female states that over the last day she been having suprapubic abdominal pain along with dysuria and states urinary frequency states she had urinary tract infections in the past this feels similar she denies any flank pain she denies any fever has had some nausea denies any vomiting states her pain is currently a 3 out of 10. Associated Symptoms: Reports dysuria; Denies chills and fever(s) Review of Systems Const: Denies: fever(s), chills, body aches or change in appetite Eyes: Denies: blurry vision or eye discomfort ENMT: Denies: throat pain or dental pain Card: Denies: chest pain Resp: Denies: dyspnea GI: Reports: abdominal pain : Reports: dysuria and urinary frequency Musc: Denies: neck pain or back pain Skin/Breast: Denies: rash Neuro: Denies: headache(s) Psych: Denies: depression Sherif/Lymph: Denies: easy bruising All/Imm: Denies: urticaria PFSH ED PFSH: Medical History Anxiety Chronic GERD Diabetes mellitus Diabetes mellitus with hyperglycemia, without long-term current use of insulin History of smoking Stop Summer 2019 Morbid obesity with body mass index of 50.0-59.9 in adult No pertinent past medical history Denies hypertension, seizures, asthma, DVT/PE, bleeding problems. PCP: P[facility] Borja Urolithiasis Surgical History S/P cholecystectomy 05/20/2014- Laparoscopic Dx: Cholelithiasis. Performed by Dr Morgan at [facility] in [place], [place] S/P wisdom tooth extraction Status post surgery History of surgery for right arm fracture done in [facility] Family History Family/Other Breast cancer Maternal aunt, diagnosed in her late 40s Hypertension maternal great grandmother Mother Diabetes Heart disease, Onset Age: 50 stentx x2 Hyperlipidemia Hypertension Father Diabetes Hypertension Grandmother Heart disease, Onset Age: 70 maternal Hyperlipidemia maternal Hypertension maternal Thyroid condition maternal Grandfather Stroke Maternal great grandfather Hypertension maternal Heart disease, Onset Age: 40 Maternal, open heart surgery Grandmother Heart disease, Onset Age: 34 paternal Other CAD (coronary artery disease) FH: CABG (coronary artery bypass surgery) Family history of premature coronary artery disease History of coronary artery stent placement Denies family history of Colon cancer Ovarian cancer Uterine cancer Social History Smoking and tobacco status: current every day smoker Quit status (tobacco): has quit using tobacco Year quit tobacco: 2019 Former quit date comment: smoked x 20+ yrs Second hand smoke exposure: Yes Smoking risk assessment/counseling performed?: No Alcohol intake: former Desire information about alcohol rehabilitation?: No Counseling given: No Desire information about substance/drug rehabilitation?: No Counseling given: No Adopted: No Caregiver/support person: No Lives independently: Yes Household members: spouse Housing: House Marital status: service: No Current occupational status: employed Current gender identity: Female Special krystal needs: No Agree to transfusion: Yes Additional social history: - Tobacco Use: Started smoking at age 16 summer Alcohol Use: has not drank in 1 year Drug Use: Used marijuana as a teenager. Last use of marijuana was prior to 2005. Denies any other drug use. 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 Physical Exam Const: COMMON NORMALS: no acute distress, patient oriented x3 and healthy appearing HENMT: COMMON NORMALS: normocephalic and atraumatic HEAD & SCALP: normocephalic and atraumatic Eye: COMMON NORMALS: Equal, round and reactive pupils present and EOMs intact bilaterally PUPIL: Yes Equal, round and reactive pupils present Neck/C-Spine: COMMON NORMALS: full ROM and supple Chest: COMMONS NORMALS: normal inspection of the chest and normal palpation of entire chest wall Resp: COMMON NORMALS: normal respiratory effort, No retractions, No use of accessory muscles and clear to auscultation bilaterally AUSCULTATION: clear to auscultation bilaterally Cardio: COMMON NORMALS: regular rate, regular rhythm and No murmurs present (Cardio) RATE: regular rate RHYTHM: regular rhythm GI: COMMON NORMALS: Normal to inspection, nondistended, normoactive bowel sounds present, Soft to palpation, non-tender and no masses PALPATION: Yes Soft to palpation Extremity: COMMON NORMALS: normal to inspection and full ROM Neuro: COMMON NORMALS: patient oriented x3, moves all extremities and no focal motor deficits Psych: COMMON NORMALS: mental status grossly normal, Normal thought process present and cooperative THOUGHT PROCESS: Normal thought process present Skin: COMMON NORMALS: no rashes or lesions noted and no wounds GENERAL SKIN EXAM: no rashes or lesions noted Course Vital Signs: Vital signs: Vital Signs Temperature 97.6 F 07/16/22 04:53 Pulse Rate 70 07/16/22 07:00 Respiratory Rate 18 07/16/22 07:29 Blood Pressure 105/53 07/16/22 07:00 Pulse Oximetry 96 07/16/22 07:29 Oxygen Delivery Me thod 07/16/22 07:00 MDM - Abdominal Pain Lab Data 07/16/22 05:01 07/16/22 05:01 Labs/Radiology: Radiology Impressions Abdomen/Pelvis CT 07/16/22 07:19 IMPRESSION: 1. Mild RIGHT hydroureteronephrosis. Recently passed 4 mm calcification is now within the urinary bladder. 2. Normal appendix. 3. Nonobstructing residual RIGHT renal calcification with perinephric stranding. 4. Prior cholecystectomy. Laboratory Results WBC 11.8 10^3/uL (4.0-10.0) H 07/16/22 05:01 RBC 5.07 10^6/uL (4.1-5.3) 07/16/22 05:01 Hgb 14.3 g/dL (11.5-15.3) 07/16/22 05:01 Hct 45.1 % (37.0-47.0) 07/16/22 05:01 MCV 89.0 fl (81-99) 07/16/22 05:01 MCH 28.2 pg (28.0-34.0) 07/16/22 05:01 MCHC 31.7 g/dL (30.0-36.0) 07/16/22 05:01 RDW 13.4 % (12.1-15.1) 07/16/22 05:01 Plt Count 323 10^3/cmm (130-400) 07/16/22 05:01 MPV 9.2 fL (7.4-10.4) 07/16/22 05:01 Neut % (Auto) 75.2 % 07/16/22 05:01 Lymph % (Auto) 13.1 % 07/16/22 05:01 [place] % (Auto) 8.2 % 07/16/22 05:01 Eos % (Auto) 3.0 % 07/16/22 05:01 Baso % (Auto) 0.2 % 07/16/22 05:01 Neut # (Auto) 8.91 10^3/uL (1.8-7.7) H 07/16/22 05:01 Lymph # (Auto) 1.6 10^3/uL (0.8-4.8) 07/16/22 05:01 [place] # (Auto) 1.0 10^3/uL (0.2-0.9) H 07/16/22 05:01 Eos # (Auto) 0.4 10^3/uL (0.0-0.8) 07/16/22 05:01 Baso # (Auto) 0.0 10^3/uL (0.0-0.1) 07/16/22 05:01 Nucleated RBC % (auto) 0 % 07/16/22 05:01 Nucleated RBCs # 0.0 /100WBC 07/16/22 05:01 Sodium 137 mmol/L (136-145) 07/16/22 05:01 Potassium 3.7 mmol/L (3.5-5.1) 07/16/22 05:01 Chloride 102 mmol/L (98-107) 07/16/22 05:01 Carbon Dioxide 20 mmol/L (22-29) L 07/16/22 05:01 Anion Gap 18.7 (5-19) 07/16/22 05:01 BUN 13 mg/dL (6-20) 07/16/22 05:01 Creatinine 1.0 mg/dL (0.5-0.9) H 07/16/22 05:01 GFR Calculation 62.1 mL/min (90-130) L 07/16/22 05:01 Glucose 127 mg/dL (65-115) H 07/16/22 05:01 Calculated Osmolality 286 mOsm/kg (285-295) 07/16/22 05:01 Calcium 9.4 mg/dL (8.5-10.5) 07/16/22 05:01 Total Bilirubin 0.3 mg/dL (0.15-1.2) 07/16/22 05:01 AST 20 U/L (0-32) 07/16/22 05:01 ALT 25 U/L (0-33) 07/16/22 05:01 Alkaline Phosphatase 62 U/L (35-105) 07/16/22 05:01 Total Protein 7.1 g/dL (6.6-8.7) 07/16/22 05:01 Albumin 3.9 g/dL (3.5-5.2) 07/16/22 05:01 Globulin 3.2 g/dL (1.3-4.6) 07/16/22 05:01 Lipase 18 U/L (13-60) 07/16/22 05:01 HCG, Qual Negative (Negative) 07/16/22 05:01 Urine Color Yellow (Yellow) 07/16/22 06:00 Urine Appearance Clear (CLEAR) 07/16/22 06:00 Urine pH 5 (5-7) 07/16/22 06:00 Ur Specific Wilson 1.020 (1.005-1.030) 07/16/22 06:00 Urine Protein Neg (Negative) 07/16/22 06:00 Urine Glucose (UA) Norm (Normal) 07/16/22 06:00 Urine Ketones Negative (Negative) 07/16/22 06:00 Urine Blood 3+ (Negative) H 07/16/22 06:00 Urine Nitrate Negative (Negative) 07/16/22 06:00 Urine Bilirubin Neg (Negative) 07/16/22 06:00 Urine Urobilinogen Neg mg/dL (Negative) 07/16/22 06:00 Ur Leukocyte Esterase Trace (Negative) H 07/16/22 06:00 Urine RBC 5-10 /hpf (0-2) H 07/16/22 06:00 Urine WBC None /hpf (0-5) 07/16/22 06:00 Ur Squamous Epith Cells 5-10 /hpf (0-5) H 07/16/22 06:00 Amorphous Sediment Not Reportable 07/16/22 06:00 Urine Bacteria 1+ /hpf (NONE) H 07/16/22 06:00 Urine Mucus 1+ /hpf 07/16/22 06:00 Discharge Plan Discharge Patient Disposition: Home Clinical Impression: Abdominal pain, Kidney stone, Hematuria Condition: Stable Prescriptions: New ondansetron 4 mg tablet,disintegrating 4 mg PO Q8H PRN (Reason: nausea and vomiting) Qty: 15 0RF oxycodone 5 mg tablet 5 mg PO Q4H PRN (Reason: pain) Qty: 10 0RF Flomax 0.4 mg capsule 0.4 mg PO DAILY Qty: 20 0RF cephalexin 500 mg capsule 500 mg PO Q6H 7 Days Qty: 28 0RF No Action vitamin E (dl, acetate) 400 unit capsule 450 mg PO DAILY magnesium 200 mg tablet 200 mg PO DAILY cetirizine 10 mg capsule 10 mg PO DAILY ascorbate calcium (vitamin C) 500 mg tablet 500 mg PO DAILY aspirin [Adult Low Dose Aspirin] 81 mg tablet,delayed release (DR/EC) 81 mg PO DAILY estradiol [Estrace] 0.01 % (0.1 mg/gram) cream 1 appful vaginal .weekly Qty: 42.5 2RF hljwzsod-jawwicrhs-UF 3.5-10,000-1 mg/mL-unit/mL-% drops,suspension 4 drp otic (ear) TID 10 Days Qty: 10 0RF Mounjaro 5 mg/0.5 mL pen injector 5 mg SUBCUT .weekly Qty: 2 2RF Farxiga 10 mg tablet 10 mg PO QAM Qty: 30 2RF bupropion HCl [Wellbutrin SR] 150 mg tablet sustained-release 12 hr 150 mg PO BID Qty: 60 2RF escitalopram oxalate [Lexapro] 10 mg tablet 10 mg PO DAILY Qty: 30 2RF hydroxyzine pamoate 50 mg capsule 50 mg PO BID PRN (Reason: axiety) 30 Days Qty: 60 2RF Rx Instructions: may take 100 mg if needed metformin 500 mg tablet 2,000 mg PO DAILY Qty: 120 2RF rosuvastatin [Crestor] 5 mg tablet 5 mg PO QDAY Qty: 30 2RF zonisamide [Zonegran] 25 mg capsule 25 mg PO .every 6 hours Qty: 120 2RF Vitamin D3 25 mcg (1,000 unit) Tablet,Chewable 25 mcg PO DAILY Discharge Orders: Discharge ED (Routine); Ordered 07/16/22 Ordered By: Colin Nava Referrals: Emre Valentino, [facility] [Primary Care Provider] - Discharge Diet: Usual diet Discharge Activity: Increase activity as tolerated Patient Instructions: Renal Colic (ED), How to Strain Your Urine (ED), Abdominal Pain (ED), Ureteral Stones (ED), Opioid Safety Activity Restrictions/Additional Instructions: Thank you for visiting the emergency department. You were seen and evaluated for abdominal pain. The most likely cause of your pain is related to a recently passed kidney stone which is now in the bladder. There is still mild residual backup of fluid and irritation. There is a small amount of bacteria in your ur ine which will be treated. I will prescribe Flomax, antinausea medication, and pain medication. Please use oxycodone carefully as it is an opioid. You may use kpxq-qzp-emccmqn medications such as acetaminophen and ibuprofen for pain however please do not exceed the daily recommended dosage as listed on the packaging and please keep in mind that many namebrand medications contain the same active ingredients. Please avoid these medications if previously instructed to do so by another physician due to other underlying medical condition. I will message case management for urology follow-up. Return to the emergency department for uncontrolled symptoms or anything else that you are concerned about and feel needs emergency department evaluation. Sign Out Sign Out Data: Patient Sign Out occurred on 07/16/22 at 06:12. Patient's care was discussed, and care was transferred from to Colin Nava MD. 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 PCP: P[facility] Borja Urolithiasis Surgical History S/P cholecystectomy 05/20/2014- Laparoscopic Dx: Cholelithiasis. Performed by Dr Morgan at [facility] in [place], [place] S/P wisdom tooth extraction Status post surgery History of surgery for right arm fracture done in [facility] Family History Family/Other Breast cancer Maternal aunt, diagnosed in her late 40s Hypertension maternal great grandmother Mother Diabetes Heart disease, Onset Age: 50 stentx x2 Hyperlipidemia Hypertension Father Diabetes Hypertension Grandmother Heart disease, Onset Age: 70 maternal Hyperlipidemia maternal Hypertension maternal Thyroid condition maternal Grandfather Stroke Maternal great grandfather Hypertension maternal Heart disease, Onset Age: 40 Maternal, open heart surgery Grandmother Heart disease, Onset Age: 34 paternal Other CAD (coronary artery disease) FH: CABG (coronary artery bypass surgery) Family history of premature coronary artery disease History of coronary artery stent placement Denies family history of Colon cancer Ovarian cancer Uterine cancer Social History Smoking and tobacco status: current every day smoker Quit status (tobacco): has quit using tobacco Year quit tobacco: 2019 Former quit date comment: smoked x 20+ yrs Second hand smoke exposure: Yes Smoking risk assessment/counseling performed?: No Alcohol intake: former Desire information about alcohol rehabilitation?: No Counseling given: No Desire information about substance/drug rehabilitation?: No Counseling given: No Adopted: No Caregiver/support person: No Lives independently: Yes Household members: spouse Housing: House Marital status: service: No Current occupational status: employed Current gender identity: Female Special krystal needs: No Agree to transfusion: Yes Additional social history: - Tobacco Use: Started smoking at age 16 summer Alcohol Use: has not drank in 1 year Drug Use: Used marijuana as a teenager. Last use of marijuana was prior to 2005. Denies any other drug use. 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 Course Vital Signs: Vital signs: Vital Signs Temperature 97.6 F 07/16/22 04:53 Pulse Rate 70 07/16/22 07:00 Respiratory Rate 18 07/16/22 07:29 Blood Pressure 105/53 07/16/22 07:00 Pulse Oximetry 96 07/16/22 07:29 Oxygen Delivery Me thod 07/16/22 07:00 MDM - Abdominal Pain Medical Decision Making Patient care handoff received from Dr. Chavez pending completion of ED evaluation. Laboratory studies reviewed with mild leukocytosis and likely mild dehydration. Urinalysis demonstrates hematuria with not convincing evidence for urinary tract infection. On reassessment patient continues to have pain. CT ordered and additional analgesia ordered. CT demonstrates recently passed kidney stone which is now in the bladder, there is some mild residual hydronephrosis and stranding. I will order Toradol which I believe will significantly improve the patient's pain. Plan to treat in the outpatient setting for recently passed kidney stone and given urinalysis findings I will prescribe a course of antibiotics as well. Plan to have outpatient follow-up again with urology. The results of ED evaluation were discussed with the patient including prescriptions and/or symptomatic cares (if applicable) including appropriate and responsible use, followup plan, and return precautions. The patient verbalized understanding and felt safe for discharge. Lab Data 07/16/22 05:01 07/16/22 05:01 Labs/Radiology: Radiology Impressions Abdomen/Pelvis CT 07/16/22 07:19 IMPRESSION: 1. Mild RIGHT hydroureteronephrosis. Recently passed 4 mm calcification is now within the urinary bladder. 2. Normal appendix. 3. Nonobstructing residual RIGHT renal calcification with perinephric strand ing. 4. Prior cholecystectomy. Laboratory Results WBC 11.8 10^3/uL (4.0-10.0) H 07/16/22 05:01 RBC 5.07 10^6/uL (4.1-5.3) 07/16/22 05:01 Hgb 14.3 g/dL (11.5-15.3) 07/16/22 05:01 Hct 45.1 % (37.0-47.0) 07/16/22 05:01 MCV 89.0 fl (81-99) 07/16/22 05:01 MCH 28.2 pg (28.0-34.0) 07/16/22 05:01 MCHC 31.7 g/dL (30.0-36.0) 07/16/22 05:01 RDW 13.4 % (12.1-15.1) 07/16/22 05:01 Plt Count 323 10^3/cmm (130-400) 07/16/22 05:01 MPV 9.2 fL (7.4-10.4) 07/16/22 05:01 Neut % (Auto) 75.2 % 07/16/22 05:01 Lymph % (Auto) 13.1 % 07/16/22 05:01 [place] % (Auto) 8.2 % 07/16/22 05:01 Eos % (Auto) 3.0 % 07/16/22 05:01 Baso % (Auto) 0.2 % 07/16/22 05:01 Neut # (Auto) 8.91 10^3/uL (1.8-7.7) H 07/16/22 05:01 Lymph # (Auto) 1.6 10^3/uL (0.8-4.8) 07/16/22 05:01 [place] # (Auto) 1.0 10^3/uL (0.2-0.9) H 07/16/22 05:01 Eos # (Auto) 0.4 10^3/uL (0.0-0.8) 07/16/22 05:01 Baso # (Auto) 0.0 10^3/uL (0.0-0.1) 07/16/22 05:01 Nucleated RBC % (auto) 0 % 07/16/22 05:01 Nucleated RBCs # 0.0 /100WBC 07/16/22 05:01 Sodium 137 mmol/L (136-145) 07/16/22 05:01 Potassium 3.7 mmol/L (3.5-5.1) 07/16/22 05:01 Chloride 102 mmol/L (98-107) 07/16/22 05:01 Carbon Dioxide 20 mmol/L (22-29) L 07/16/22 05:01 Anion Gap 18.7 (5-19) 07/16/22 05:01 BUN 13 mg/dL (6-20) 07/16/22 05:01 Creatinine 1.0 mg/dL (0.5-0.9) H 07/16/22 05:01 GFR Calculation 62.1 mL/min (90-130) L 07/16/22 05:01 Glucose 127 mg/dL (65-115) H 07/16/22 05:01 Calculated Osmolality 286 mOsm/kg (285-295) 07/16/22 05:01 Calcium 9.4 mg/dL (8.5-10.5) 07/16/22 05:01 Total Bilirubin 0.3 mg/dL (0.15-1.2) 07/16/22 05:01 AST 20 U/L (0-32) 07/16/22 05:01 ALT 25 U/L (0-33) 07/16/22 05:01 Alkaline Phosphatase 62 U/L (35-105) 07/16/22 05:01 Total Protein 7.1 g/dL (6.6-8.7) 07/16/22 05:01 Albumin 3.9 g/dL (3.5-5.2) 07/16/22 05:01 Globulin 3.2 g/dL (1.3-4.6) 07/16/22 05:01 Lipase 18 U/L (13-60) 07/16/22 05:01 HCG, Qual Negative (Negative) 07/16/22 05:01 Urine Color Yellow (Yellow) 07/16/22 06:00 Urine Appearance Clear (CLEAR) 07/16/22 06:00 Urine pH 5 (5-7) 07/16/22 06:00 Ur Specific Wilson 1.020 (1.005-1.030) 07/16/22 06:00 Urine Protein Neg (Negative) 07/16/22 06:00 Urine Glucose (UA) Norm (Normal) 07/16/22 06:00 Urine Ketones Negative (Negative) 07/16/22 06:00 Urine Blood 3+ (Negative) H 07/16/22 06:00 Urine Nitrate Negative (Negative) 07/16/22 06:00 Urine Bilirubin Neg (Negative) 07/16/22 06:00 Urine Urobilinogen Neg mg/dL (Negative) 07/16/22 06:00 Ur Leukocyte Esterase Trace (Negative) H 07/16/22 06:00 Urine RBC 5-10 /hpf (0-2) H 07/16/22 06:00 Urine WBC None /hpf (0-5) 07/16/22 06:00 Ur Squamous Epith Cells 5-10 /hpf (0-5) H 07/16/22 06:00 Amorphous Sediment Not Reportable 07/16/22 06:00 Urine Bacteria 1+ /hpf (NONE) H 07/16/22 06:00 Urine Mucus 1+ /hpf 07/16/22 06:00 Discharge Plan Discharge Patient Disposition: Home Clinical Impression: Abdominal pain, Kidney stone, Hematuria Condition: Stable Prescriptions: New ondansetron 4 mg tablet,disintegrating 4 mg PO Q8H PRN (Reason: nausea and vomiting) Qty: 15 0RF oxycodone 5 mg tablet 5 mg PO Q4H PRN (Reason: pain) Qty: 10 0RF Flomax 0.4 mg capsule 0.4 mg PO DAILY Qty: 20 0RF cephalexin 500 mg capsule 500 mg PO Q6H 7 Days Qty: 28 0RF No Action vitamin E (dl, acetate) 400 unit capsule 450 mg PO DAILY magnesium 200 mg tablet 200 mg PO DAILY cetirizine 10 mg capsule 10 mg PO DAILY ascorbate calcium (vitamin C) 500 mg tablet 500 mg PO DAILY aspirin [Adult Low Dose Aspirin] 81 mg tablet,delayed release (DR/EC) 81 mg PO DAILY estradiol [Estrace] 0.01 % (0.1 mg/gram) cream 1 appful vaginal .weekly Qty: 42.5 2RF sjnezyyi-dbwhzezvr-QH 3.5-10,000-1 mg/mL-unit/mL-% drops,suspension 4 drp otic (ear) TID 10 Days Qty: 10 0RF Mounjaro 5 mg/0.5 mL pen injector 5 mg SUBCUT .weekly Qty: 2 2RF Farxiga 10 mg tablet 10 mg PO QAM Qty: 30 2RF bupropion HCl [Wellbutrin SR] 150 mg tablet sustained-release 12 hr 150 mg PO BID Qty: 60 2RF escitalopram oxalate [Lexapro] 10 mg tablet 10 mg PO DAILY Qty: 30 2RF hydroxyzine pamoate 50 mg capsule 50 mg PO BID PRN (Reason: axiety) 30 Days Qty: 60 2RF Rx Instructions: may take 100 mg if needed metformin 500 mg tablet 2,000 mg PO DAILY Qty: 120 2RF rosuvastatin [Crestor] 5 mg tablet 5 mg PO QDAY Qty: 30 2RF zonisamide [Zonegran] 25 mg capsule 25 mg PO .every 6 hours Qty: 120 2RF Vitamin D3 25 mcg (1,000 unit) Tablet,Chewable 25 mcg PO DAILY Discharge Orders: Discharge ED (Routine); Ordered 07/16/22 Ordered By: Colin Nava Referrals: Emre Valentino, [facility] [Primary Care Provider] - Discharge Diet: Usual diet Discharge Activity: Increase activity as tolerated Patient Instructions: Renal Colic (ED), How to Strain Your Urine (ED), Abdominal Pain (ED), Ureteral Stones (ED), Opioid Safety Activity Restrictions/Additional Instructions: Thank you for visiting the emergency department. You were seen and evaluated for abdominal pain. The most likely cause of your pain is related to a recently passed kidney stone which is now in the bladder. There is still mild residual backup of fluid and irritation. There is a small amount of bacteria in your urine which will be treated. I will prescribe Flomax, antinausea medication, and pain medication. Please use oxycodone carefully as it is an opioid. You may use rjku-slf-jlupwgb medications such as acetaminophen and ibuprofen for pain however please do not exceed the daily recommended dosage as listed on the packaging and please keep in mind that many namebrand medications contain the same active ingredients. Please avoid these medications if previously instructed to do so by another physician due to other underlying medical condition. I will message case management for urology follow-up. Return to the emergency department for uncontrolled symptoms or anything else that you are concerned about and feel needs emergency department evaluation. Sign Out Sign Out Data: Patient Sign Out occurred on 07/16/22 at 06:12. Patient's care was discussed, and care was transferred from to Colin Nava MD. Coding Level of Care Code ED Director Learning And Development for Rafi Mendoza
[2022-07-16 05:06] LABS: Basophils % 0.2 %; Eosinophils # 0.4 10^3/uL (0.0-0.8); Hematocrit 45.1 % (37.0-47.0); Hemoglobin 14.3 g/dL (11.5-15.3); Lymphocytes # 1.6 10^3/uL (0.8-4.8); Lymphocytes % 13.1 %; Mean Corpuscular HGB Conc 31.7 g/dL (30.0-36.0); Mean Corpuscular Hemoglobin 28.2 pg (28.0-34.0); Mean Platelet Volume 9.2 fL (7.4-10.4); Monocytes % 8.2 %; Neutrophils # 8.91 10^3/uL (1.8-7.7); Neutrophils % 75.2 %; Nucleated Red Blood Cells % 0 %; Platelet Count 323 10^3/cmm (130-400); Red Blood Count 5.07 10^6/uL (4.1-5.3); Red Cell Distribution Width 13.4 % (12.1-15.1); White Blood Count 11.8 10^3/uL (4.0-10.0)
[2022-07-16] MEDS: ondansetron 2 mg/ML SDV 2 mL 4 MG IVP (05:24)
[2022-07-16] MEDS: morphine 4 mg/mL SDV 1 mL IVP ×2 (05:24→07:29)
[2022-07-16] MEDS: sodium chloride 0.9% 1,000 ML 999 ML IV (05:24)
[2022-07-16 05:27] LABS: Alanine Aminotransferase 25 U/L (0-33); Albumin Level 3.9 g/dL (3.5-5.2); Alkaline Phosphatase 62 U/L (35-105); Anion Gap 18.7 (5-19); Aspartate Amino Transferase 20 U/L (0-32); Blood Urea Nitrogen 13 mg/dL (6-20); Calcium 9.4 mg/dL (8.5-10.5); Carbon Dioxide 20 mmol/L (22-29); Chloride 102 mmol/L (98-107); Globulin 3.2 g/dL (1.3-4.6); Glomerular Filtration Rate 62.1 mL/min (90-130); Glucose 127 mg/dL (65-115); Lipase 18 U/L (13-60); Osmolality Calculated 286 mOsm/kg (285-295); Potassium 3.7 mmol/L (3.5-5.1); Sodium 137 mmol/L (136-145); Total Bilirubin 0.3 mg/dL (0.15-1.2); Total Protein 7.1 g/dL (6.6-8.7)
[2022-07-16 05:41] LABS: HCG, Serum Qual Negative (Negative)
--- NOTE | 2022-07-16 06:56 | PC.NURSE ---
Report to Lindsay Galvan at transfer of care.
--- NOTE | 2022-07-16 06:58 | PC.NURSE ---
04Received report from Roseanne ERIC. Pt monitors removed so pt could get up to restroom. 5]
[2022-07-16 07:15] LABS: Blood Urine 3+ (Negative); Glucose Urine UA Norm (Normal); Ketones Urine Negative (Negative); Nitrate Urine Negative (Negative); Protein Urine Neg (Negative); Urine Appearance Clear (CLEAR); Urine Color Yellow (Yellow); pH Urine 5 (5-7)
[2022-07-16 07:16] LABS: Add Urine Culture? No; Add Urine Microscopic? YES; Bacteria Urine 1+ /hpf; Bilirubin Urine Neg (Negative); Leukocyte Esterase Urine Trace (Negative); Mucus Urine 1+ /hpf; Urobilinogen Urine Neg (Negative)
--- NOTE | 2022-07-16 07:19 | CT_ITS ---
WS: [id number] CT ABDOMEN AND PELVIS NONCONTRAST HISTORY: abd pain, hematuria, hx of kidney stones TECHNIQUE: Imaging performed through the abdomen and pelvis. Coronal and sagittal reformats are submi tted. All CT scans at [facility] use at least one of these dose optimization techniques: auto mated exposure control; mA and/or kV adjustment per patient size (includes targeted exams where dose is matched to clinical indication); or iterative reconstruction. DLP: 1258.79 mGy.cm COMPARISON: 07/18/2019 Lower thorax: Lung bases are clear. Visualized heart is normal. No hiatal hernia. Liver: Normal size liver. No mass or bile duct dilatation. Gallbladder: Prior cholecystectomy. Pancreas: Normal size and attenuation. Normal pancreatic duct. No pancreatitis or mass. Spleen: Normal. Adrenal glands: Normal. No mass. Right kidney: Mild enlargement with perinephric stranding. Very mild dilatation of the RIGHT renal pe lvis and ureter. Mild periureteral stranding. Mild heterogeneity in the distal ureter. There is a 4 m m stone in the dependent portion of the bladder. Additional nonobstructing 3 mm calcification RIGHT k idney. Left kidney: Normal size kidney with no mass or hydronephrosis. Aorta: Normal abdominal aorta, no aneurysm or atherosclerosis. No free fluid, intraperitoneal air or significant lymphadenopathy. GI tract: Nondistended stomach. No small bowel obstruction. No colon obstruction. Normal appendix. Abdominal wall: Small umbilical hernia contains fat only. Pelvis: Mildly distended urinary bladder. There is a 4 mm calcification within the urinary bladder. U terus and ovaries are negative. Osseous structures: Advanced degenerative disc disease at L5-S1 with facet joint arthropathy. CT/CT kidney stone [id number] IMPRESSION: 1. Mild RIGHT hydroureteronephrosis. Recently passed 4 mm calcification is now within the urinary bladder. 2. Normal appendix. 3. Nonobstructing residual RIGHT renal calcification with perinephric strandin g. 4. Prior cholecystectomy.
[2022-07-16] MEDS: ketorolac 30 mg/mL INJ 15 MG IVP (08:12)
--- NOTE | 2022-07-16 09:27 | DCPLANNER ---
Addendum entered by Lora Azul 08/03/22 08:55: Patient had a follow up appointment scheduled with urology - patient did attend appointment Addendum entered by Lora Azul 07/22/22 07:24: Patient has an appointment scheduled for Tuesday, August 02, 2022 at 12:45 with urology. Clinic will call patient with appointment information. Original Note: manager coding had message to schedule a follow up appointment for patient with urology. manager coding sent patients information to the front office staff at urology. Patients information will be printed and reviewed. Clinic will call patient with appointment information.
== END 2022-07-16 08:52 | disposition home or self-care (01) ==
PROVIDERS: Emergency Medicine; Emergency Provider Emergency Medicine; PCP Nurse Practitioner
DX: N13.2 Hydronephrosis with renal and ureteral calculous obstruction (principal); R31.9 Hematuria, unspecified; Z79.82 Long term (current) use of aspirin; F17.210 Nicotine dependence, cigarettes, uncomplicated; E11.9 Type 2 diabetes mellitus without complications; Z79.84 Long term (current) use of oral hypoglycemic drugs; Z87.442 Personal history of urinary calculi
CPT/HCPCS: 74176; 80053; 81001; 83690; 84703; 85025; 96361; 96374; 96375; 96376; 99285; J1885; J2270; J2405; J7030

== ENCOUNTER 2022-08-02 11:42 | Outpatient (CLI) | payer OTHER, SELFPAY ==
--- NOTE | 2022-08-02 11:58 | XR_ITS ---
WS: [id number] EXAMINATION: XR KUB [id number] REASON FOR EXAM: STONES COMPARISON: None available. ORDER DATE: 08/02/2022 12:18 PM FINDINGS: There is a nonspecific colonic gas pattern with scattered fecal content and gas. There is no sign of significant small bowel dilation. No pathologic abdominal calcification is seen. Surgical clips fro m prior cholecystectomy noted XR/XR KUB [id number] IMPRESSION: Nonspecific bowel gas pattern
== END 2022-08-02 11:43 | disposition home or self-care (01) ==
PROVIDERS: PCP Nurse Practitioner; Visit Provider Urology
DX: N20.0 Calculus of kidney (principal)
CPT/HCPCS: 74018; 81003

== ENCOUNTER 2022-09-16 11:56 | Outpatient (CLI) | payer OTHER, SELFPAY ==
--- NOTE | 2022-09-16 13:00 | US_ITS ---
WS: [id number] Abdomen ultrasound, 09/16/2022 Clinical Data: left upper quadrant pain Comparison: Abdomen ultrasound, 02/24/2019 Findings: The pancreas was obscured by overlying bowel gas. The gallbladder is absent The right kidney is not imaged. The left kidney is 10.2 cm. No cysts, masses or hydronephrosis is seen. The spleen measures 9.5 cm and there are no intrasplenic masses or capsular abnormalities. US/US abdomen limited [id number] Impression: 1. The pancreas is obscured by overlying bowel gas. 2. Absent gallbladder. 3. The abdominal imaging was limited to the left side of the abdomen because of the location of the clinical symptoms.
== END 2022-09-16 11:57 | disposition home or self-care (01) ==
LOC: RAD 12:03
PROVIDERS: PCP Nurse Practitioner; Visit Provider Nurse Practitioner
DX: R10.12 Left upper quadrant pain (principal); Z90.49 Acquired absence of other specified parts of digestive tract
CPT/HCPCS: 76705; 81000

== ENCOUNTER → 2023-02-03 17:02 | Outpatient (BNVA) | payer OTHER, SELFPAY | PROVIDERS: PCP Nurse Practitioner; Visit Provider Nurse Practitioner | DX: F41.9 Anxiety disorder, unspecified (principal); E11.65 Type 2 diabetes mellitus with hyperglycemia; E11.69 Type 2 diabetes mellitus with other specified complication; M51.36 Other intervertebral disc degeneration, lumbar region; E66.9 Obesity, unspecified | CPT/HCPCS: 80053; 80061; 83036 ==

== ENCOUNTER → 2023-05-17 16:52 | Outpatient (BNVA) | payer OTHER, SELFPAY | PROVIDERS: PCP Nurse Practitioner; Visit Provider Nurse Practitioner | DX: E11.9 Type 2 diabetes mellitus without complications (principal) | CPT/HCPCS: 80053; 83036 ==

== ENCOUNTER → 2023-08-02 17:12 | Outpatient (BNVA) | payer OTHER, SELFPAY | PROVIDERS: PCP Nurse Practitioner; Visit Provider Nurse Practitioner | DX: E11.65 Type 2 diabetes mellitus with hyperglycemia (principal); M51.36 Other intervertebral disc degeneration, lumbar region; E11.69 Type 2 diabetes mellitus with other specified complication; F41.9 Anxiety disorder, unspecified; E11.9 Type 2 diabetes mellitus without complications | CPT/HCPCS: 80053; 80061; 83036 ==

== ENCOUNTER → 2024-02-03 08:54 | Outpatient (BNVA) | payer OTHER, SELFPAY | PROVIDERS: PCP Nurse Practitioner; Visit Provider Nurse Practitioner | DX: E11.9 Type 2 diabetes mellitus without complications (principal) | CPT/HCPCS: 80053; 80061; 83036 ==

== ENCOUNTER → 2024-08-07 11:19 | Outpatient (BNVA) | payer OTHER, SELFPAY | PROVIDERS: PCP Nurse Practitioner Family; Visit Provider Nurse Practitioner Family | DX: R10.9 Unspecified abdominal pain (principal); E11.65 Type 2 diabetes mellitus with hyperglycemia | CPT/HCPCS: 80053; 80061; 82150; 83036; 83690; 84443; 85025 ==

== ENCOUNTER → 2024-12-20 11:18 | Outpatient (BNVA) | payer OTHER, SELFPAY | PROVIDERS: PCP Nurse Practitioner Family; Visit Provider Nurse Practitioner Women's Health | DX: Z12.4 Encounter for screening for malignant neoplasm of cervix (principal); N91.2 Amenorrhea, unspecified | CPT/HCPCS: 82306; 82670; 83001; 83002; 83520; 83525; 84144; 84146; 84402; 84403; 87624 ==

== ENCOUNTER 2024-12-26 10:47 | Outpatient (CLI) | payer SELFPAY ==
--- NOTE | 2024-12-26 11:40 | MM_ITS ---
WS: [id number] BILATERAL 3D TOMOSYNTHESIS DIGITAL SCREENING MAMMOGRAPHY WITH CAD CLINICAL INFORMATION: Z12.39 - Encounter for other screening for malignant neop... HISTORY: Screening mammogram. No current complaints. COMPARISON: Baseline TECHNIQUE: Bilateral CC and MLO views. FINDINGS: Scattered fibroglandular densities bilaterally. No suspicious focal mass, asymmetry, calcifications, or architectural distortion. No evidence of malignancy. A few incidental punctate lucent centered calcifications RIGHT breast. MM/MM [facility] tomosynthesis [id number] IMPRESSION: DENSITY: There are scattered areas of fibroglandular density. BI-RADS: 2 - Benign. FOLLOW UP: 1 Year Follow-up Recommend return to annual screening mammography.
--- NOTE | 2024-12-26 13:00 | MR_ITS ---
WS: [id number] MRI CERVICAL SPINE NONCONTRAST HISTORY: R20.0 - Anesthesia of skin COMPARISON: None available. Technique: Multiplanar, multisequence noncontrast imaging of the cervical spine. There is slight straightening of the normal cervical lordosis. Signal within the cervical cord is normal. Visualized posterior fossa is unremarkable. Craniocervical junction, C1 and C2 relationship, odontoid process and soft tissues are normal. Minimal ectopia of the cerebellar tonsils. No Chiari malformation. C2-C3: Normal. C3-C4: Small RIGHT foraminal osteophyte. Very mild RIGHT foraminal stenosis. C4-C5: Mild annular disc bulging and osteophytic ridging. Mild facet arthritis. Mild central and bilateral foraminal stenosis. C5-C6: Diffuse asymmetric disc bulging. Larger RIGHT paracentral disc osteophyte contacting and displacing the RIGHT lateral thecal sac. Mild central stenosis. C6-C7: Mild annular disc bulge with a small LEFT foraminal disc protrusion effacing CSF. Mild central stenosis. No foraminal stenosis. C7-T1: Normal. Paraspinal soft tissues are normal. MR/MR cervical spin wo con* [id number] IMPRESSION: 1. No high-grade central or foraminal stenosis. 2. Mild central and bilateral foraminal stenosis at C4-5 due to disc osteophyte disease. 3. Large RIGHT paracentral disc osteophyte contacting and displacing the RIGHT lateral thecal sac at C5-6. Mild central stenosis. 4. LEFT foraminal disc osteophyte protrusion at C6-7 resulting in mild central stenosis. 5. Very mild RIGHT foraminal stenosis at C3-4.
== END 2024-12-26 10:48 | disposition home or self-care (01) ==
LOC: RAD 10:48
PROVIDERS: PCP Nurse Practitioner Family; Visit Provider Nurse Practitioner Women's Health
DX: Z12.31 Encounter for screening mammogram for malignant neoplasm of breast (principal); R20.0 Anesthesia of skin; R20.2 Paresthesia of skin; R29.898 Other symptoms and signs involving the musculoskeletal system; R92.323 Mammographic fibroglandular density, bilateral breasts; R92.1 Mammographic calcification found on diagnostic imaging of breast; M48.02 Spinal stenosis, cervical region; M25.78 Osteophyte, vertebrae; M50.123 Cervical disc disorder at C6-C7 level with radiculopathy; M50.223 Other cervical disc displacement at C6-C7 level
CPT/HCPCS: 72141; 77063; 77067

== ENCOUNTER → 2025-01-07 13:33 | Outpatient (BNVA) | payer OTHER, SELFPAY | PROVIDERS: PCP Nurse Practitioner Family; Visit Provider Nurse Practitioner Women's Health | DX: N91.2 Amenorrhea, unspecified (principal) | CPT/HCPCS: 76830 ==

== ENCOUNTER → 2025-04-02 08:43 | Outpatient (BNVA) | payer OTHER, SELFPAY | PROVIDERS: PCP Nurse Practitioner Family; Visit Provider Student in an Organized Health Care Education/Training Program | DX: G56.03 Carpal tunnel syndrome, bilateral upper limbs (principal) | CPT/HCPCS: 73110 ==

== ENCOUNTER 2025-05-09 18:12 | Emergency (ER) | payer OTHER, SELFPAY ==
--- OUTSIDE RECORDS SUMMARY | 2025-05-09 18:18 | XMS_ITS | Clinical Summary ---
Author Organization [facility] Address [address] [place] [address] Care Team Providers Care Parking Enforcer Name Role Phone Unavailable Primary Care Provider Unavailabl e Encounters Date Type Department Care Team Description 02/12/2025 Abstract [facility] Neurosurgery [address] [place] [address] Samra Tran MD from Last 3 Months Social History Tobacco Use Types Packs/Day Years Used Date Smoking Tobacco: Never Assessed Comments Unknown Sex and Gender Information Value Date Recorded Sex Assigned at Not on file Legal Sex Female 11:53 AM CDT Gender Identity Not on file Sexual Orientation Not on file Plan of Treatment Health Maintenance Due Date Last Done Comments DTAP/TDAP/TD VACCINES (1 - Tdap) 10/19/2002 HEPATITIS B VACCINES (1 of 3 - 19+ 3-dose series) 10/2002 HPV/Cotest (21-29) 10/19/2004 CERVICAL CANCER SCREENING 10/19/2013 HPV/Cotest (30-65) 10/19/2013 PAP SMEAR 10/19/2013 BREAST CANCER SCREENING 2023 INFLUENZA VACCINE (#1) 2024 HPV VACCINES (No Doses Required) Completed
--- OUTSIDE RECORDS SUMMARY | 2025-05-09 18:18 | XMS_ITS | Patient Health Record ---
Author Organization [facility] Address [address] [place] [address] Care Team Providers Care Ceo Ziff Davis Name Role Phone Sapna Mar Unavailable [phone] Allergies Allergen (clinical drug ingredient) Drug/Non Drug Allergy documented on EMR Reaction Allergy Type Onset Date Status Penicillin Unknown Drug Allergy Active Reason For Referral No Information Medications Medication SIG (Take, Route, Frequency, Duration) Notes Start Date End Date Status Rosuvastatin Calcium 10 MG Tablet 1 tablet Orally Once a day Active Azithromycin 250 mg Tablet TAKE 2 TABLET S BY MOUTH ON DAY 1, THEN TAKE 1 TABLET DAILY ON DAYS 2 through 5; Duration: 5 Active Farxiga 10 MG Tablet 1 tablet Orally Onc e a day Active metFORMIN HCl 500 MG Tablet 2 tab Orally twice a day Active Wellbutrin XL 150 MG Tablet Extended Release 24 Hour 1 tablet in the morning Orally Once a day Active Escitalopram Oxalate 10 MG Tablet 1 tablet Orally Once a day Active Fluconazole 150 MG Tablet 1 tablet Orall y; Duration: 10 day(s) Active Social History Tobacco Use: Social History Observation Description Date Details (start date - stop date) Current Smoker NA - NA Social History Depression Screening Social Info Question Answer Notes PHQ-9 Little interest or pleasure in doing thin gs Not at all Feeling down, depressed, or hopeless Not at all Trouble falling or staying asleep, or sleeping t oo much Not at all Feeling tired or having little energy Not at all Poor appetite or overeating Not at all Feeling bad about yourself, or that you are a failure, or have let yourself or your family down Not at all Trouble concentrating on thi ngs, such as reading the newspaper or watching television Not at all Moving or speaking so slowly that other people could have noticed. Or the opposite ? being so fidgety or restless that you have been moving around a lot more than usual Not at all Thoughts that you would be b nico off , or of hurting yourself in some way Not at all Total Score 0 Drugs/Alcohol: Social Info Question Answer Notes Alcohol Screen (Audit-C) Did you have a drink containing alcohol in the past year? No Points 0 Interpretation Negative Tobacco Use: Social Info Question Answer Notes xTobacco Use/Smoking Are you a current smoker How often do you smoke cigarettes? every day How many cigarettes a day do you smoke? 04-04 Section Notes: 03/03/22 PHQ9 Plan Of Treatment No Information Insurance Providers Payer Name Payer Address Payer Phone Subscriber Number Group Number Insured Name Patient Relationship to Insured Coverage Start Date Coverage End Date [address] [place] [phone] [id number] Leticia Steele Self - patient is the insured Medications Administered Medication Instructions Date of Administration Dosage Notes dexAMETHasone 03/03/2022 8 mg [id number] Rocephin 03/03/2022 1 g [id number] Medical (General) History Medical History History ICD Code type II diabetes Anxiety disorder Surgical History Surgery Date(Month/Year) cholecystectomy right arm surgery
--- OUTSIDE RECORDS SUMMARY | 2025-05-09 18:18 | XMS_ITS | Data Portability ---
Author Organization [place] - [facility], [facility] Address [address] [address] Assessment Encounter Date Assessment Date Assessment LastModified by Organization Details LastModified Time 10/19/2019 10/19/2019 45 min exam and discussion, over 50% face to face counselingv [email or web address] Not available 10/19/2019 14:23:39 10/26/2019 10/26/2019 15 min exam and discussion, over 50% face to face counseling [email or web address] Not available 10/26/2019 11:36:18 Plan of Treatment Reminders Order Date Submit Date Provider Last Modified By Organization Details Last Modified Time Details Appointments None recorded. Lab anti-mulle poly hormone (amh), serum 2019 020 [facility] [employer], [address] [place] [address], [address], 0 09:22:34 lh (luteinizi ng hormone), serum 2019 020 [place] [facility], [address] [place] [address], [address], 0 07:01:50 FSH (follicle- stimulatin g hormone), serum 2019 020 [facility] [facility] [facility], [address] [place] [address], [address], 0 07:01:49 estradiol, serum 2019 020 [place] [employer] [facility], [address] [place] [address], [address], 0 07:01:50 vitamin D, 25-hydroxy , total, serum 2019 [facility] [facility], [address] [place], [address], 0 07:01:50 abo group + rh type, blood 2019 [facility] [facility] [facility], [address] [place] [address], [address], 0 07:01:51 rubella igg Ab screen, serum 2019 [place] [employer] [facility], [address] [place] [address], [address], 0 07:01:49 Referral None recorded. Procedures None recorded. Surgeries None recorded. Imaging US, transvagin al 2019 020 Not available 0 05:59:29 US, transvagin al 2019 020 Not available 0 05:34:12 Medication Orders letrozole 2.5 mg tablet 2019 [email or web address] [facility], [address] [place] [address], [address], 0 14:23:25 Ovidrel 250 mcg/0.5 mL subcutaneo us syringe 2019 020 [facility]FACE [facility], [address] [place] [address], [address], 0 14:28:39 Prometrium 200 mg capsule 2019 020 [email or web address] [facility], [address] [place] [address], [address], 0 14:23:25 Patient TargetsNo targets recorded. Patient InstructionsNo instructions recorded. Reason for Referral None Reported. Results Created Date Observation Date Name Description Value Unit Range Abnormal Flag Note LastModifiedBy Organization Detail LastModifiedTime 10/19/19 20 10/21/2019 rubel la igg Ab scree n, serum rubella antibody (IgG) 9.23 index normal Index Inter preta tion ----- ----- ----- ---- <0.90 Not consi stent with Immun ity 0.90- 0.99 Equiv ocal > or = 1.00 Consi stent with Immun ity The prese nce of rubel la IgG antib mathew sugge sts immun izati on or past or curre nt infec tion with rubel la virus . Not Available [employer] [facility] [address] [place], [address], 10/21/2019 07:01:48 10/19/19 20 10/21/2019 FSH (foll icle- stimu latin g hormo ne), serum FSH 19.8 mIU/m L normal Refer ence Range Folli cular Phase 2.5-1 0.2 Mid-c ycle Peak 3.1-1 7.7 Lutea l Phase 1.5- 9.1 Postm enopa usal 23.0- 116.3 Not Available [employer] [facility] [address] [place], [address], 10/21/2019 07:01:49 10/19/19 20 10/21/2019 lh (lute inizi ng hormo ne), serum LH 4.8 mIU/m L normal Refer ence Range Folli cular Phase 1.9-1 2.5 Mid-C ycle Peak 8.7-7 6.3 Lutea l Phase 0.5-1 6.9 Postm enopa usal 10.0- 54.7 Not Available [employer] [facility] [address] [place], [address], 10/21/2019 07:01:50 10/19/19 20 10/21/2019 estra diol, serum estradiol 17 pg/mL normal Refer ence Range Folli cular Phase : 19-14 4 Mid-C ycle: 64-35 7 Lutea l Phase : 56-21 4 Postm enopa usal: < or = 31 Refer ence range estab lishe d on post- puber flores patie nt popul ation . No pre-p ubert al refer ence range estab lishe d using this assay . For any patie nts for whom low Estra diol level s are antic ipate d (e.g. males , pre-p ubert al child jacek and hypog onada l/pos t-men opaus al femal es), the [facility] Mic ls Insti tute Estra diol, Ultra sensi tive, LCMSM S assay is recom didi d (orde r code 87595 ). Pleabdirashid e note: patie nts being treat ed with the drug fulve stran t (Fasl odex( R)) have demon strat ed signi fican t inter feren ce in immun oassa y metho ds for estra diol measu remen t. The cross react ivity could lead to false ly eleva yessica estra diol test resul ts leadi ng to an inapp ropri ate clini david asses sment of estro gen statu s. [facility] order code [id number] -Estr adiol , Ultra sensi tive LC/MS /MS demon strat es negli gible cross react ivity with fulve stran t. Not Available [employer] [facility] [address] [place], [address], 10/21/2019 07:01:50 10/19/19 20 10/21/2019 vitam in D, 25-hy droxy , total , serum vitamin D,25-oh,tota l,ia 30 NG/mL 30-100 normal Vitam in D Statu s 25-OH Vitam in D: Defic iency : <20 ng/mL Insuf ficie ncy: 20 - 29 ng/mL Optim al: > or = 30 ng/mL For 25-OH Vitam in D testi ng on patie nts on D2-slaughter pplem entat ion and patie nts for whom quant itati on of D2 and D3 fract ions is requi red, the [facility] Assur eD(TM ) 25-OH VIT D, (D2,D 3), LC/MS /MS is recom didi d: order code [id number] (chiqui ents >2yrs ). See Note 1 Note 1 For addit ional infor tahir morley refer to http: //[facility] Javi stDia gnost ics.c om/fa q/FAQ 199 (This link is being provi ded for infor matio nal/ educa earnest l purpo ses only. ) Not Available [address], [address], 10/21/2019 07:01:50 10/19/19 20 10/21/2019 abo group + rh type, blood ABO group A Not Available [address], [address], 10/21/2019 07:01:51 10/19/19 20 10/21/2019 abo group + rh type, blood Rh type RH(D) NEGATI VE For addit ional infor tahir morley refer to http: //[facility]avi stDia gnost ics.c om/fa q/FAQ 111 (This link is being provi ded for infor victor hugolula nal/ educa earnest l purpo ses only. ) Not Available [address], [address], 10/21/2019 07:01:51 10/26/19 20 10/30/2019 anti- mulle poly hormo ne (amh) , femal e anti-mulleri an hormone (amh), female 0.04 NG/mL 0.18-5 .68 low Not Available [address], [address], 10/30/2019 16:28:38 10/19/19 20 10/19/2019 US, trans vagin al No observ ation record ed. [email or web address] Not Available 2019 12:44:53 10/23/19 20 10/19/2019 US, trans vagin al No observ ation record ed. [email or web address] Not Available 2019 15:05:47 10/26/19 20 10/26/2019 US, trans vagin al No observ ation record ed. [email or web address] Not Available 2019 10:58:36 10/30/19 20 10/26/2019 US, trans vagin al No observ ation record ed. [email or web address] Not Available 2019 13:49:48 Result Notes None recorded. Problems Name Problem SNOMED Code Status Onset Date Resolution Date Notes Provider Name and Address Organization Details Recorded Time Diabetes mellitus 09723243 Active 2019 controlle d with medicatio n Mena [place] null, [place] - [facility] 0 13:03:00 Body mass index 40+ - severely obese 942812613 Active 2019 Radha Kim MSN, [facility]- [address], [address], [place], [address], [place] - [facility] 0 19:26:47 History of pancreati tis 760159500731 07 Active 2019 Radha Kim MSN, [facility] [address], [address], [place], [address], [place] [facility] 0 19:27:01 Miscarria ge 23930782 Active 2019 2016 <6 weeks Radha Kim MSN, [facility] [address], [address], [place], [address], [place] [facility] 0 19:27:55 Problem Notes None recorded. Procedures Surgical History Date Name Laterality Status Provider Name and Address Organization Details Recorded Time cholecystectomy completed Mena Rosalie [place] - [facility] 10/19/2019 13:07:15 Imaging Results None recorded. Procedure Notes None recorded. Medical Equipment None Reported. Allergies Allergen ID Allergen Name Allergen Category Reaction Reaction Severity Criticality Documentation Date Start Date Code Code System Note Provider Name and Address Organization Details Recorded Time 35752 Product containin g penicilli n (product) medicatio n Not available Not available Not available 10/19/2019 24254 1266 SNOMED mom and broth er are aller gic, not sure if she is aller gic, but stays away in case Mena [place] null, [place] - [facility] 0 13:01:44 Medications Name Sig Start Date Stop Date Status Note LastModified by Organization Details LastModified Time Prometrium 200 mg capsule Take 1 capsule every day by oral route at bedtime for 30 days. 2019 active Not Available Not Available Not Avai lable nystatin 100,000 unit/mL oral suspension take 5ML BY MOUTH FOUR TIMES DAILY FOR 10 DAYS 10/25 completed Not Available Not Available Not Available azithromyc in 250 mg tablet TAKE 2 TABLETS BY MOUTH ON DAY 1, THEN TAKE 1 TABLET DAILY ON DAYS 2-5 10/25 completed Not Available Not Available Not Available hydrocodon e 5 mg-acetami nophen 325 mg tablet TAKE ONE TABLET BY MOUTH EVERY 6 HOURS NEEDED FOR PAIN 10/25 completed Not Available Not Available Not Available ondansetro n HCl 4 mg tablet 10/25 completed Not Available Not Available Not Available prednisone 20 mg tablet TAKE TWO TABLETS BY MOUTH DAILY 10/25 completed Not Available Not Available Not Available ciprofloxa trupti 500 mg tablet TAKE ONE TABLET BY MOUTH TWICE DAILY FOR 10 DAYS 10/25 completed Not Available Not Available Not Available tamsulosin 0.4 mg capsule 10/25 completed Not Available Not Available Not Available benzonatat e 100 mg capsule TAKE ONE CAPSULE BY MOUTH THREE TIMES DAILY 10/25 completed Not Available Not Available Not Available cephalexin 500 mg capsule TAKE ONE CAPSULE BY MOUTH EVERY 8 HOURS FOR 7 DAYS 10/25 completed Not Available Not Available Not Available letrozole 2.5 mg tablet TAKE TWO TABLETS BY MOUTH EVERY DAY DIRECTED FOR FIVE DAYS active Not Available Not Available No t Available metformin ER 500 mg tablet,ext ended release 24 hr TAKE 4 TABLETS BY MOUTH EVERY DAY 10/25 completed Not Available Not Available Not Available rosuvastat in 5 mg tablet 10/25 completed Not Available Not Available Not Available Ovidrel 250 mcg/0.5 mL subcutaneo us syringe Inject 0.5 mL every day by subcutane ous route as directed for 1 day. 2019 active Not Available Not Available Not Avai lable ibuprofen active prn Not Available Not Keri ilable Not Available metformin active XR 500mg, 4 Tabs once daily Not Available Not Available Not Available Zyrtec active prn Not Available Not Availa ble Not Available Sudogest 12-hour 120 mg tablet,ext ended release take DIRECTED ON box 10/25 completed Not Available Not Available Not Available Victoza 2-Escobar 0.6 mg/0.1 mL (18 mg/3 mL) subcutaneo us pen injector inject 0.6mg SUBCUTANE OUSLY ONCE daily FOR TWO WEEKS THEN increase TO 1.2mg daily 10/25 completed Not Available Not Available Not Available Vitals Date Recorded Body weight Body mass index (BMI) Body height Systolic And Diastolic Provider Name and Address Organization Details Last Updated DateTime 10/19/2019 553747.79 g 49.8 kg/m2 162.56 cm 124/76 mm[Hg] Mena RAMIREZ - [facility] 10/19/2019 13:12:08 Date Recorded Body height Body mass index (BMI) Body weight Systolic And Diastolic Provider Name and Address Organization Details Last Updated DateTime 10/26/2019 162.56 cm 49.8 kg/m2 521583.79 g 122/72 mm[Hg] Marie Kern [place] - [facility] 10/26/2019 11:05:28 Social History Question Answer Notes LastModified by Organizat ion Details LastModified Time Tobacco Smoking Status Current Every Day Smoker JAMES [place] - [facility] 10/19/2019 13:05:55 What Is Your Level Of Caffeine Consumption? Occasional Information not available 10/19/2019 Illicit Drugs No Information not available 10/19/2019 Marital Status Information not available 10/19/2019 How Many Children Do You Have? 0 Information not available 10/19/2019 Are You Sexually Active? Yes Information not available 10/19/2019 How Much Tobacco Do You Smoke? 0.5 PPD Cutting Back Information not available 10/19/2019 Sex: Unknown Functional Status Question Answer Note LastModified by Organizat ion Details LastModified Time What is your level of alcohol consumption? 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 Never used electronic cigarettes Information not available 10/19/2019 What is your exercise level? Moderate Information not available 10/19/2019 Mental Status None recorded. Family History Relationship Description Onset Age of this Age Resolved Age Notes LastModified by Organization Details LastModified Time Mother Hypertensive disorder Not available 2019 13:05:25 Mother Diabetes mellitus and father Not available 10/19/2019 13:05:35 Medical History Condition Response Ovarian cancer N Diabetes Y Blood Clots/DVT N Influenza Vaccine Y Thyroid disease N Endometriosis N Breast Cancer N Hyperlipidemia Y Heart Disease N Hypertension N Gynecological History Statement/Question Response Significant pain with periods? N Prior pap date 08/2019 Date of LMP 10/17/2019 Duration of Flow (days) 4 Current Control Method None Frequency of Cycle (Q days) 27 Obstetrics History GPAL:G 1 P 0 0 1 0 Type Value Spontaneous 1 Total 1 Past Encounters Encounter ID Performer Location Encounter Start Date Encounter Closed Date Diagnosis/Indication Diagnosis SNOMED-CT Code Diagnosis ICD10 Code Diagnosis IMO Codes Diagnosis Note [id number] Radha WILCOX, [facility] [address], [address] [place] [address] 10/19/2019 11:28:51 10/23/2019 05:34:11 Female infertility 9518607 N97.9 *Lives [place]5 hours away ([place]), 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 ET=7.14 mm, Left ovary vol=5.9 cc, LFC=3, Right ovarian volume=7.6 cc, RFC=3, also probable simple avascular cyst 1.4 cm. Plan:Letro zole and Covid consent reviewed in detail , discussed unknown risks of pancreatit is reoccurren ce with medication s, consents signedRisk s of multiples and cancellati on of cycles for >3 follicles UPT today, if negative, Start Letrozole 5 mg po CD 3-7, FS CD 10Sent Rx for Ovidrel, Prometrium Check CD 3 labs today-LH,E 2,FSH,Rube lla titre, ABO-RHObta in records from receiving team member on recent paps, TVUS, &Labs- may have has Luteal Phase Progestero ne done, want to see Thyroid studies also Watch Endometria l thickness and Ovarian cyst next scanWill need weight loss counseling /encourage ment Start Daily vitaminsCh song GC/CT cultures due to w/ prostatiti s x 2 Call for any problems or concerns Body mass index 40+ - severely obese 410208417 Z68.42 Diabetes mellitus 027402 09 E11.9 [id number] Radha Kim MSN, [facility] [address], [address] [place] [address] 10/26/2019 09:59:35 10/30/2019 05:59:29 Female infertility 4466164 N97.9 *FS CD 10, ET=5.14, no response to 5 mg Letrozole, unable to visualize ovaries well, due to large habitus and obesityCD 3 labs- E2=17, FSH=19.8, Plan: OPKs this cycle, home ICCheck AMH ( Was not drawn last visit), has Estradiol= 17., FSH -19.8- discussed in detail, they do not want IVF cleanse bowel day before next baseline scan Next cycle- Plan letrozole if headaches not related to med- 7.5 mg and FSH 75 iu CD 4,6,8,9, FS CD10 Can try clomid 100 mg if letrozole is not tolerated- ask about headaches next visit call With CD 1, Had neck and headache on letrozole, went away when completed it, will monitor, may not be able to tolerate itLives 2.5 hours away ([place]), 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 Health Concerns Section Related Observation LastModified by Organization Detai ls LastModified Time None Recorded Concern Status LastModified by Organization Details LastModified Time None Recorded Advance Directives Directive None Recorded Payers Insurance Date Sequence Insurance Name Policy Number Policy Grace Covered Member ID Grace Member ID Guarantor Name 11/21/2019 1 [place] [id number] Jocelynkristian Steele [id number] Leticia Steele Notes Date Note Type Note Provider Name and Address Organization Details Recorded Time 10/19/2019 text/html Leticia, age 33, TTC x 2 yearsG-1, P-0, SAB at <6 weeks, 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, was , miscarried at about 6 weeks, Has Not conceived sincePeriods are regular, Cycles 23- 45 days average, mostly Q 30 days, Flows 4 days, not usually heavy not painfulLOW [facility]ian [place] ( [facility] 0.07 )HSG about 2017- told tubes were patentBMI=49.8 LMP was heavy, CD 3 todayOPKs show Surge 12-14 No Pelvic infections, Last Pap July,- normal, no hx abnormal paps Facial Acne, Oily skin, Plucks chin, struggle with weight-Type 2 diabetes ( 6 year), On metformin , 2 GM PO Daily, x 6-7 yearsTook Victosa ( developed Pancreatitis)HGA1C - 6.3 ( 3 months ago)Hyperlipidemia - No medsNo Other health problems Ketan, age 35, Has 2 biological kids, no problems getting , Several S/A's, had 2 prostate infections- tx'd, Low motility ( 30%), normal 32 %., sometimes high viscosity, otherwise all WNL Radha Kim MSN, [facility] [address], [place] [address], [place], [address], [place] [facility] 10/19/2019 19:29:41 10/26/2019 text/html FS CD 10 Radah WILCOX, [facility] [address], [place] [address], [place], [address], [facility] [place] [facility] - [facility] 10/26/2019 16:58:43 OBGyn Episode No OBEpisode recorded.
[2025-05-09 18:25] VITALS: BP 127/68; PULSE 80; RESP 18; TEMP 36.8; O2SAT 97; BMI 44.2
--- NOTE | 2025-05-09 20:12 | W.ED.ABDPA2 ---
HPI - Abdominal Pain General: Chief Complaint: Abdominal Pain Stated Complaint: abdominal pain, and body hurts all over Time Seen by Provider: 05/09/25 18:43 Source: patient Mode of arrival: ambulatory Limitations: no limitations History of Present Illness: Patient is a 39-year-old female with past medical history of diabetes, anxiety, morbid obesity, and reported pancreatitis complaining of upper abdominal pain for the past couple of days. States that it is overall intermittent, it started after she was sitting down to open/rep presents. She is extremely anxious at time of examination, tells me that she has been having some diarrhea as well but no other symptoms. No fevers. She reports to me that her history of pancreatitis was caused by taking SGLT2 inhibitors. Tells me that she does not have her gallbladder. No fevers or chills at home. No recent trauma, no overuse injury. Currently rating her pain as a 5/10 and described it as cramping, states that sometimes it will worsen to where it is unbearable and causes her to tear up. MD elicited complaint: abdominal pain Onset (ago): day(s) Pain Consistency: intermittent Severity: moderate Quality: cramping Associated Symptoms: Reports GI cramping and diarrhea; Denies bloating, change in stool character, chills, constipation, dysuria, fever(s), hematochezia, nausea and vomiting Related Data Home Medications ?Medication ?Instructions ?Recorded ?Confirmed cetirizine 10 mg capsule 10 mg PO DAILY 08/29/19 04/02/25 cholecalciferol (vitamin D3) 25 25 mcg PO DAILY 03/28/20 04/02/25 mcg (1,000 unit) chewable tablet (Vitamin D3) ascorbate calcium (vitamin C) 500 500 mg PO DAILY 04/02/20 04/02/25 mg tablet magnesium 200 mg tablet 200 mg PO DAILY 07/15/20 04/02/25 Previous Rx's ?Medication ?Instructions ?Recorded tirzepatide 2.5 mg/0.5 mL 2.5 mg (0.5 mL) SUBCUT .once 05/31/24 subcutaneous pen injector weekly #2 mL (Mounjenellero) escitalopram oxalate 20 mg tablet 20 mg PO DAILY #30 tabs 12/12/24 estradiol 0.01% (0.1 mg/gram) 1 appful vaginal .weekly #42.5 12/12/24 vaginal cream (Estrace) grams zonisamide 50 mg capsule 50 mg PO Q12H #60 caps 12/12/24 mupirocin 2 % topical ointment 1 applic topical BID 14 days #15 12/20/24 grams metronidazole 500 mg tablet 500 mg PO BID 7 days #14 tabs 12/24/24 fluconazole 150 mg tablet 150 mg PO Q3D #3 tabs 02/18/25 bupropion HCl 150 mg tablet,12 hr See Rx Instructions .Route 04/26/25 sustained-release .COMPLEX #60 tabs pantoprazole 40 mg tablet,delayed See Rx Instructions .Route 04/26/25 release .COMPLEX #30 tabs Allergies Allergy/AdvReac Type Severity Reaction Status Date / Time No Known Allergies Allergy Verified 05/09/25 18:29 Review of Systems General: Reports: 10 or more systems reviewed and unremarkable except in HPI and below Const: Denies: fever(s), chills, change in appetite, change in weight or diaphoresis ENMT: Denies: throat pain or hoarseness Card: Denies: chest pain, palpitations or lightheadedness Resp: Denies: dyspnea, productive cough or wheezing GI: Reports: abdominal pain, diarrhea and GI cramping; Denies: nausea, vomiting, constipation, bloating, change in stool character or hematochezia : Denies: flank pain, difficulty voiding, dysuria, urinary frequency or urinary urgency Musc: Denies: neck pain or back pain Skin/Breast: Denies: rash or new lesions Neuro: Denies: headache(s) or dizziness PFSH ED PFSH: Medical History Obesity (BMI 30-39.9) Diabetes mellitus with hyperglycemia, without long-term current use of insulin Urolithiasis History of smoking Stop Summer 2019 Anxiety Chronic GERD Diabetes mellitus No pertinent past medical history Denies hypertension, seizures, asthma, DVT/PE, bleeding problems. PCP: PEMA Borja Surgical History Status post surgery History of surgery for right arm fracture done in [facility] S/P wisdom tooth extraction S/P cholecystectomy 05/20/2014- Laparoscopic Dx: Cholelithiasis. Performed by Dr Morgan at [facility] [place], [place] Family History Family/Other Breast cancer Maternal aunt, diagnosed in her late 40s Hypertension maternal great grandmother Mother Diabetes Heart disease, Onset Age: 50 stentx x2 Hyperlipidemia Hypertension Father Diabetes Hypertension Grandmother Heart disease, Onset Age: 70 maternal Hyperlipidemia maternal Hypertension maternal Thyroid disease maternal Grandfather Stroke Maternal great grandfather Hypertension maternal Heart disease, Onset Age: 40 Maternal, open heart surgery Grandmother Heart disease, Onset Age: 34 paternal Other CAD (coronary artery disease) FH: CABG (coronary artery bypass surgery) Family history of premature coronary artery disease History of coronary artery stent placement Denies family history of Colon cancer Ovarian cancer Uterine cancer Social History Smoking and tobacco/nicotine status: current every day tobacco/nicotine user (1 PPD) Quit status (tobacco/nicotine): has quit using Year quit tobacco: 2019 Former quit date comment: smoked x 20+ yrs Second hand smoke exposure: Yes Alcohol intake: former Substance/Drug Use: former Date of last use: 2005 Additional social history: - Tobacco Use: Started smoking at age 16 summer Alcohol Use: has not drank in 1 year Drug Use: Used marijuana as a teenager. Last use of marijuana was prior to 2005. Denies any other drug use. 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 Adopted: No Caregiver/support person: No Lives independently: Yes Household members: spouse Housing: House Marital status: service: No Current occupational status: employed Do you think of yourself as: Straight/Heterosexual Current gender identity: Female Special krystal needs: No Agree to transfusion: Yes Physical Exam Const: COMMON NORMALS: no acute distress, patient oriented x3, no limitations, alert and well nourished GENERAL APPEARANCE: cooperative and anxious NUTRITIONAL APPEARANCE: obese morbidly obese ORIENTATION/CONSCIOUSNESS: Yes awake Neck/C-Spine: COMMON NORMALS: full ROM, supple and no meningeal signs Resp: COMMON NORMALS: normal respiratory effort, No retractions, No use of accessory muscles and clear to auscultation bilaterally AUSCULTATION: clear to auscultation bilaterally, no crackles, no rales, no rhonchi and no wheezes Cardio: COMMON NORMALS: regular rate, regular rhythm, No gallops present (Cardio), No clicks present (Cardio), No murmurs present (Cardio) and No rub (Cardio) RATE: regular rate RHYTHM: regular rhythm GI: COMMON NORMALS: Soft to palpation, non-tender and no masses INSPECTION: Yes central obesity AUSCULTATION: Yes normoactive bowel sounds PALPATION: Yes Soft to palpation, No Guarding due to palpation present (GI) and No Rigid due to palpation Extremity: COMMON NORMALS: normal to inspection and full ROM Neuro: COMMON NORMALS: patient oriented x3, moves all extremities, no focal motor deficits and no sensory deficits noted SENSORIUM/ORIENTATION: Yes alert MENINGEAL SIGNS: Yes no meningeal signs Psych: COMMON NORMALS: mental status grossly normal, cooperative and speech normal SPEECH: Yes normal speech Skin: COMMON NORMALS: no rashes or lesions noted GENERAL SKIN EXAM: no rashes or lesions noted Course Vital Signs: Vital signs: Vital Signs Temperature 98.2 F 05/09/25 18:25 Pulse Rate 73 05/09/25 22:30 Respiratory Rate 16 05/09/25 22:30 Blood Pressure 119/75 05/09/25 21:22 Pulse Oximetry 96 05/09/25 22:30 Oxygen Delivery Me thod Room Air 05/09/25 22:30 MDM - Abdominal Pain Medical Decision Making Patient presented for evaluation of her upper abdominal cramping, she is very anxious at time of examination but not complaining of much pain as she had nontender abdomen to palpation. Did note to me that it was following an awkward position she was in while wrapping/unwrapping presents, associated only with diarrhea. No other symptoms to note. Vitals have been stable, afebrile and no reports of fevers or chills at home. Lab work was all completely normal, including CBC, CMP, lipase, and urinalysis. No evidence of pancreatitis on the CT, there is benign appearance of splenic infarction that is of no significance in this setting as her blood work is all normal, and otherwise no acute abdominal pelvic abnormality. I suspect that this pain is abdominal wall in nature, she is stable for discharge home for symptomatic therapy, and will return with any new or worsening. Lab Data 05/09/25 20:39 05/09/25 20:39 Labs/Radiology: Radiology Impressions Abdomen/Pelvis CT 05/09/25 20:21 IMPRESSION: 1. Wedge-shaped hypoattenuating lesion within the central spleen may represent an area of infarction. 2. Otherwise no acute abdominopelvic abnormality. COMMENTS: Consistent with the [employer]'s Incidental Findings Committee white paper (J Am Pedro Pablo Radiol 2018): Any incidental renal lesion less than 1 cm or classified as too small to characterize, or any incidental cystic renal lesion characterized as simple-appearing, is likely benign. No follow-up imaging is recommended for these lesions per consensus recommendations based on imaging criteria. Laboratory Results WBC 9.59 10^3/uL (3.29-11.43) 05/09/25 20:39 RBC 4.29 10^6/uL (3.85-5.65) 05/09/25 20:39 Hgb 13.10 g/dL (11.27-16.99) 05/09/25 20:39 Hct 39.7 % (36-47) 05/09/25 20:39 MCV 92.5 fl (85-98) 05/09/25 20:39 MCH 30.5 pg (27-33) 05/09/25 20:39 MCHC 33.0 g/dL (30-55) 05/09/25 20:39 RDW 12.8 % (12.1-15.1) 05/09/25 20:39 Plt Count 276 10^3/cmm (157-399) 05/09/25 20:39 MPV 9.1 fL (7.4-10.4) 05/09/25 20:39 Neut % (Auto) 64.3 % 05/09/25 20:39 Lymph % (Auto) 20.9 % 05/09/25 20:39 [place] % (Auto) 11.3 % 05/09/25 20:39 Eos % (Auto) 3.1 % 05/09/25 20:39 Baso % (Auto) 0.1 % 05/09/25 20:39 Neut # (Auto) 6.17 10^3/uL (1.8-7.7) 05/09/25 20:39 Lymph # (Auto) 2.0 10^3/uL (0.8-4.8) 05/09/25 20:39 [place] # (Auto) 1.1 10^3/uL (0.2-0.9) H 05/09/25 20:39 Eos # (Auto) 0.3 10^3/uL (0.0-0.8) 05/09/25 20:39 Baso # (Auto) 0.0 10^3/uL (0.0-0.1) 05/09/25 20:39 Nucleated RBC % (auto) 0 % 05/09/25 20: Nucleated RBCs # 0.0 /100WBC 05/09/25 20:39 Sodium 139 mmol/L (136-145) 05/09/25 20: Potassium 4.1 mmol/L (3.5-5.1) 05/09/25 20: Chloride 106 mmol/L (98-107) 05/09/25 20: Carbon Dioxide 21 mmol/L (22-29) L 05/09/25 20:39 Anion Gap 16.1 (5-19) 05/09/25 20:39 BUN 13 mg/dL (6-20) 05/09/25 20:39 Creatinine 0.9 mg/dL (0.5-0.9) 05/09/25 20:39 GFR Calculation 69.0 mL/min (90-130) L 05/09/25 20: Glucose 102 mg/dL (65-115) 05/09/25 20:39 Calculated Osmolality 288 mOsm/kg (285-295) 05/09/25 20: Calcium 8.9 mg/dL (8.5-10.5) 05/09/25 20:39 Total Bilirubin 0.2 mg/dL (0.15-1.2) 05/09/25 20:39 AST 15 U/L (0-32) 05/09/25 20:39 ALT 17 U/L (0-33) 05/09/25 20:39 Alkaline Phosphatase 55 U/L (35-105) 05/09/25 20:39 Total Protein 6.6 g/dL (6.6-8.7) 05/09/25 20:39 Albumin 3.9 g/dL (3.5-5.2) 05/09/25 20:39 Globulin 2.7 g/dL (1.3-4.6) 05/09/25 20:39 Lipase 30 U/L (13-60) 05/09/25 20:39 HCG, Qual Negative (Negative) 05/09/25 18:47 Urine Color Yellow (Yellow) 05/09/25 18:47 Urine Appearance Clear (CLEAR) 05/09/25 18:47 Urine pH 6.0 (5-7) 05/09/25 18:47 Ur Specific [place] 1.012 (1.005-1.030) 05/09/25 18:47 Urine Protein Negative (Negative) 05/09/25 18:47 Urine Glucose (UA) Negative (Normal) 05/09/25 18:47 Urine Ketones Negative (Negative) 05/09/25 18:47 Urine Blood Negative (Negative) 05/09/25 18:47 Urine Nitrate Negative (Negative) 05/09/25 18:47 Urine Bilirubin Negative (Negative) 05/09/25 18:47 Urine Urobilinogen 1.0 mg/dL (Negative) 05/09/25 18:47 Ur Leukocyte Esterase Negative (Negative) 05/09/25 18:47 Urine RBC 0-2 /hpf (0-2) 05/09/25 18:47 Urine WBC 0-5 /hpf (0-5) 05/09/25 18:47 Ur Squamous Epith Cells 0-5 /hpf (0-5) 05/09/25 18:47 Amorphous Sediment Not Reportable 05/09/25 18:47 Urine Bacteria None seen /hpf (NONE) 05/09/25 18:47 Hyaline Casts 0-4 /lpf H 05/09/25 18:47 All radiology interpretation(s) finalized by discharge Discharge Plan Discharge Patient Disposition: Home Clinical Impression: Abdominal wall pain Condition: Stable Prescriptions: No Action magnesium 200 mg tablet 200 mg PO DAILY cetirizine 10 mg capsule 10 mg PO DAILY ascorbate calcium (vitamin C) 500 mg tablet 500 mg PO DAILY Mounjaro 2.5 mg/0.5 mL pen injector 2.5 mg SUBCUT .once weekly Qty: 2 2RF mupirocin 2 % ointment 1 applic topical BID 14 Days Qty: 15 0RF Rx Instructions: apply to affected area twice daily zonisamide 50 mg capsule 50 mg PO Q12H Qty: 60 2RF estradiol [Estrace] 0.01 % (0.1 mg/gram) cream 1 appful vaginal .weekly Qty: 42.5 2RF escitalopram oxalate 20 mg tablet 20 mg PO DAILY Qty: 30 2RF metronidazole 500 mg tablet 500 mg PO BID 7 Days Qty: 14 0RF fluconazole 150 mg tablet 150 mg PO Q3D Qty: 3 0RF Rx Instructions: may repeat third dose 72 hrs after second dose if symptoms persist bupropion HCl 150 mg tablet sustained-release 12 hr See Rx Instructions .ROUTE .COMPLEX Qty: 60 2RF Dose Instruction: TAKE 1 TABLET BY MOUTH EVERY TWELVE HOURS Rx Instructions: TAKE 1 TABLET BY MOUTH EVERY TWELVE HOURS pantoprazole 40 mg tablet,delayed release (DR/EC) See Rx Instructions .ROUTE .COMPLEX Qty: 30 2RF Dose Instruction: TAKE 1 TABLET BY MOUTH EVERY DAY Rx Instructions: TAKE 1 TABLET BY MOUTH EVERY DAY Vitamin D3 25 mcg (1,000 unit) Tablet,Chewable 25 mcg PO DAILY Discharge Orders: Discharge ED (Routine); Ordered 05/09/25 Ordered By: Riky Lynch Referrals: Evelia Sullivan FNP-C [Primary Care Provider, Family Practice] Patient Instructions: Patient Portal & Nena Instructions Activity Restrictions/Additional Instructions: Discharge Instructions: Abdominal Wall Pain Your Diagnosis: Abdominal Wall Pain What Happened During Your Visit: You came to the emergency department with upper abdominal pain that wraps around your abdomen in a band-like pattern. We performed thorough testing including blood work (complete blood count, metabolic panel, urinalysis, and lipase) and a CT scan of your abdomen and pelvis. All of your laboratory tests came back completely normal. About the Finding on Your CT Scan: The CT scan showed a possible small splenic infarct (an area in your spleen with reduced blood flow). This finding is not causing your symptoms and does not require treatment. Because all of your blood tests are normal and you have no signs of infection or other concerning features, this is considered a benign (harmless) incidental finding. Small splenic infarcts like this are sometimes discovered on imaging and often do not cause symptoms. They typically heal on their own without any intervention. Your Diagnosis: Abdominal Wall Pain Based on your symptoms and normal test results, your pain is most likely coming from your abdominal wall (the muscles and tissues that make up the wall of your abdomen) rather than from organs inside your abdomen. This condition is called abdominal wall pain, and it is more common than many people realize. Abdominal wall pain can feel very similar to pain from internal organs, which is why we performed the testing to rule out other causes. The band-like pattern of your pain wrapping around your upper abdomen is actually consistent with this diagnosis. Other Possible Benign Causes: While abdominal wall pain is the most likely explanation, other benign (non-serious) conditions that can cause upper abdominal pain with normal lab work include: - Functional dyspepsia (stomach discomfort without a clear structural cause) - Gastroesophageal reflux disease (GERD) or acid reflux - Muscle strain or irritation - Gastritis (stomach lining irritation) - Stress-related abdominal discomfort Treatment and Self-Care: 1. Pain Management: You may use [id number] pain relievers such as acetaminophen (Tylenol) or ibuprofen (Advil, Motrin) as directed on the package for pain relief. 2. Activity Modification: Avoid activities that worsen your pain, such as heavy lifting, twisting motions, or strenuous exercise until your symptoms improve. 3. Heat Application: Applying a heating pad or warm compress to the painful area may provide relief. 4. Reassurance: This condition, while uncomfortable, is not dangerous and typically improves with time and conservative management. Follow-Up Care: - Schedule an appointment with your primary care doctor within 1-2 weeks - If your pain persists or worsens despite these measures, your doctor may consider a trigger point injection (a small injection of numbing medicine and anti-inflammatory medication into the painful area), which is very effective for abdominal wall pain When to Return to the Emergency Department: Seek immediate medical attention if you develop any of the following: - Severe worsening of pain - Fever (temperature above 100.4?F or 38?C) - Vomiting that won't stop - Blood in your vomit or stool - Inability to eat or drink - Yellowing of your skin or eyes - New chest pain or difficulty breathing - Dizziness or fainting Important Reminders: - Your normal laboratory tests and stable condition indicate that you do not have a serious medical problem requiring hospitalization - The finding on your CT scan does not require any specific treatment or follow-up imaging - Abdominal wall pain can take several weeks to fully resolve, but it should gradually improve - Continue to monitor your symptoms and maintain regular follow-up with your primary care doctor If you have any questions or concerns about your discharge instructions, please contact your primary care physician. Print Language: Prydeinig Coding Level of Care Code ED Video Production Specialist for Rafi Mendoza
--- NOTE | 2025-05-09 20:21 | CTR_ITS ---
PROCEDURE INFORMATION: Exam: CT Abdomen And Pelvis With Contrast Exam date and time: 05/09/2025 8:57 PM Age: 39 years old Clinical indication: Abdominal pain; Prior surgery; Surgery date: 6+ months; Surgery type: Gb; C/O epigastric pain with nausea. History of pancreatitis. ; Additional info: Epigastric pain, HX of pancreatitis TECHNIQUE: Imaging protocol: Computed tomography of the abdomen and pelvis with contrast. Radiation optimization: All CT scans at this facility use at least one of these dose optimization techniques: automated exposure control; mA and/or kV adjustment per patient size (includes targeted exams where dose is matched to clinical indication); or iterative reconstruction. Contrast material: OMNI 350; Contrast volume: 100 ml; Contrast route: INTRAVENOUS (IV); COMPARISON: CT kidney stone [id number] 07/16/2022 7:44 AM RADIATION DOSE METRICS: Total DLP (mGy-cm): 1224.1 FINDINGS: Liver: Unremarkable. Gallbladder and biliary ducts: Cholecystectomy. Pancreas: Normal. No ductal dilation. Spleen: Wedge-shaped hypoattenuating lesion within the central spleen may represent an area of infarction. Adrenal glands: Unremarkable. Kidneys and ureters: Left-sided hypodense cortical lesions too small to characterize may represent simple cysts. Right interpolar cortical renal scarring. Right-sided nonobstructive calcified calyceal renal stone. No hydronephrosis. Stomach and bowel: Unremarkable. No obstruction. No mucosal thickening. Appendix: No evidence of appendicitis. Intraperitoneal space: No free air. No fluid collection. Vasculature: Accessory left renal artery. Lymph nodes: No enlarged lymph nodes. Urinary bladder: Unremarkable as visualized. Reproductive: Unremarkable as visualized. Bones/joints: No acute fracture. Mild spondylosis. Loss of intervertebral disc space height at L5-S1. Soft tissues: Small fat containing umbilical hernia. CT/CT abdomen pelvis w con* [id number] IMPRESSION: 1. Wedge-shaped hypoattenuating lesion within the central spleen may represent an area of infarction. 2. Otherwise no acute abdominopelvic abnormality. COMMENTS: Consistent with the [employer]'s Incidental Findings Committee white paper (J Am Pedro Pablo Radiol 2018): Any incidental renal lesion less than 1 cm or classified as too small to characterize, or any incidental cystic renal lesion characterized as simple-appearing, is likely benign. No follow-up imaging is recommended for these lesions per consensus recommendations based on imaging criteria.
[2025-05-09 20:34] LABS: HCG Qualitative Urine. Negative (Negative)
[2025-05-09 20:38] LABS: Glucose Urine UA Negative (Normal); Nitrate Urine Negative (Negative); Specific Gravity, Urine 1.012 (1.005-1.030)
[2025-05-09 20:40] LABS: Add Urine Microscopic? YES
[2025-05-09 20:49] LABS: Hematocrit 39.7 % (36-47); Hemoglobin 13.10 g/dL (11.27-16.99); Mean Corpuscular HGB Conc 33.0 g/dL (30-55); Mean Corpuscular Hemoglobin 30.5 pg (27-33); Mean Corpuscular Volume 92.5 fl (85-98); Nucleated Red Blood Cells % 0 %; Platelet Count 276 10^3/cmm (157-399); Red Blood Count 4.29 10^6/uL (3.85-5.65); White Blood Count 9.59 10^3/uL (3.29-11.43)
[2025-05-09] MEDS: iohexol 350 mg/mL 500 mL Btl (per mL) IV (21:06)
[2025-05-09 21:09] LABS: Alanine Aminotransferase 17 U/L (0-33); Albumin Level 3.9 g/dL (3.5-5.2); Alkaline Phosphatase 55 U/L (35-105); Anion Gap 16.1 (5-19); Aspartate Amino Transferase 15 U/L (0-32); Blood Urea Nitrogen 13 mg/dL (6-20); Calcium 8.9 mg/dL (8.5-10.5); Carbon Dioxide 21 mmol/L (22-29); Chloride 106 mmol/L (98-107); Globulin 2.7 g/dL (1.3-4.6); Glucose 102 mg/dL (65-115); Lipase 30 U/L (13-60); Osmolality Calculated 288 mOsm/kg (285-295); Potassium 4.1 mmol/L (3.5-5.1); Sodium 139 mmol/L (136-145); Total Protein 6.6 g/dL (6.6-8.7)
--- NOTE | 2025-05-09 21:15 | PC.NURSE ---
report given to Ruth MAYER
[2025-05-09 21:22] VITALS: BP 119/75; PULSE 70; RESP 18; O2SAT 97
--- NOTE | 2025-05-09 21:22 | PC.NURSE ---
took over pt care at 2109 from Vaishnavi ERIC.
[2025-05-09 22:30] VITALS: PULSE 73; RESP 16; O2SAT 96
== END 2025-05-09 23:05 | disposition home or self-care (01) ==
PROVIDERS: Emergency Provider Physician Assistant; PCP Nurse Practitioner Family
DX: R10.9 Unspecified abdominal pain (principal); F17.210 Nicotine dependence, cigarettes, uncomplicated; E11.9 Type 2 diabetes mellitus without complications
CPT/HCPCS: 36415; 74177; 80053; 81001; 81025; 83690; 85025; 96361; 96374; 99285; J1885; J7030